=== PATIENT | female | born 1980 | race Two or more races ===

== ENCOUNTER 2019-11-30 13:50 | Outpatient (REF) | payer OTHER, SELFPAY | END 2019-11-30 13:51 | disposition home or self-care (01) | LOC: HO.LAB 13:50 | PROVIDERS: Visit Provider Internal Medicine | DX: Z20.828 Contact with and (suspected) exposure to other viral communicable diseases (principal) | CPT/HCPCS: 87635 ==

== ENCOUNTER 2020-01-17 16:14 | Outpatient (REF) | payer OTHER, SELFPAY | END 2020-01-17 16:15 | disposition home or self-care (01) | LOC: HO.LAB 16:14 | PROVIDERS: Visit Provider Internal Medicine | DX: Z20.828 Contact with and (suspected) exposure to other viral communicable diseases (principal) | CPT/HCPCS: C9803; U0003 ==

== ENCOUNTER 2020-06-03 20:30 | Emergency (ER) | payer OTHER, SELFPAY ==
--- NOTE | ~2020-06-03 | XR_ITS ---
EXAMINATION: Right fifth finger CLINICAL INFORMATION: Fifth digit crush injury COMPARISON: None TECHNIQUE: 3 views of the small finger including AP view of the hand FINDINGS: The bones and soft tissues are normal. No fracture. Alignment is anatomic. Joint spaces are maintained. XR/XR finger RT min 2V IMPRESSION: Normal x-ray series of the small finger. I do not see a fracture.
[2020-06-03 20:39] VITALS: BP 109/67; PULSE 82; RESP 18; TEMP 37; O2SAT 99; BMI 27.0
--- NOTE | 2020-06-03 21:13 | ED.EXTPRO ---
HPI - Extremity Problem General Chief complaint: Extremity Injury, Upper Stated complaint: Finger injury at work Source: patient Mode of arrival: ambulatory Limitations: no limitations History of Present Illness HPI Narrative: 39-year-old female with no significant past medical history presents for injury sustained work. Patient stated that she thought her 5th finger crushed and pinched while moving heavy objects. She does have a small abrasion at the PIP joint consistent with pinching, and has bruising to the entire finger down to the metacarpal. She is unable to straighten the finger due to pain. She has been using Tylenol and ice for pain management with poor. She does not describe any other symptoms. MD Complaint: extremity pain, extremity swelling, joint swelling and joint paint Onset (ago): day(s) (1) Pain Consistency: constant Location: right Severity scale (1-10): 7 Quality: aching and constant Radiation: none Relieving factors: immobilization and medication Exacerbating factors: range of motion and palpation Associated symptoms: denies other symptoms Related Data Allergies Allergy/AdvReac Type Severity Reaction Status Date / Time aspirin [ASPIRIN] Allergy Intermediate SWELLING Verified 06/03/20 20:39 ibuprofen [From MOTRIN] Allergy Unknown ASA ALLERGY Verified 06/03/20 20:39 Aspirin Allergy Unknown anaphylaxis Uncoded 03/12/11 00:00 Review of Systems Review of Systems: Constitutional: No Fever, No Chills ENT/Mouth: No Ear Pain, No Hoarseness, No sore throat Eyes: No Eye Pain, No Swelling, No Redness, No Foreign Body Cardiovascular: No Chest Pain, No SOB Respiratory: No Cough, No Dyspnea Gastrointestinal: No Nausea, No Vomiting, No Diarrhea, No abdominal Pain Genitourinary: No Dysuria, No Hematuria Musculoskeletal: positive right 5th finger pain and joint swelling, No Myalgias Skin: No Skin lacerations, No rash Neuro: No Weakness, No Numbness, No Paresthesias, No Loss of Consciousness, No Dizziness, No Headache Psych: No Anxiety/Panic, No Depression Heme/Lymph: no easy bruising, no Lymphadenopathy Endocrine: No Polyuria, No Polydipsia Yes all other systems are reviewed and are negative [facility] Past Medical History Attestation statement: The following information was validated with the patient. 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 Oriented X3. No acute distress. Eyes: Pupils equal, round and reactive to light. ENT: Pharynx normal. Neck: Normal inspection. Neck supple. CVS: Normal heart rate and rhythm. Pulses normal. Respiratory: No respiratory distress. Breath sounds normal. Abdomen: Soft and nontender. Skin: Skin warm and dry. Normal skin color. Normal skin turgor. Extremities: Swelling and bruising noted to the 5th finger on the right hand, pinch abrasion noted at the PIP palmar aspect, patient does have 5/5 strength and full range of motion although painful, brisk capillary refill and neurologically intact. Neuro: No motor deficit. No sensory deficit. Course Course Course Narrative: 39-year-old female presents with a work related injury to the right 5th finger. Plan of care is for x-ray. X-rays negative for fracture, however with the swelling, bruising, and pain is highly suspicious for a sprain. With the abrasion to the palmar aspect of the finger, we will update her Tdap vaccine. Patient was advised to follow up with work connection for further care. Patient was placed in a splint. Patient is allergic to aspirin and Motrin, will give Tylenol as needed for pain management. Patient verbalized understanding of and agrees plan of care discharge home. MDM - Extremity (Nontraumatic) MDM Narrative Medical decision making narrative: Fracture, sprain, abrasion, dislocation Medical Records Attestation: I reviewed the patient's medical records. Imaging Data Finger x-ray: Attestation: I personally reviewed and interpreted this imaging study as follows: Radiologist's impression: EXAMINATION: Right fifth finger CLINICAL INFORMATION: Fifth digit crush injury COMPARISON: None TECHNIQUE: 3 views of the small finger including AP view of the hand FINDINGS: The bones and soft tissues are normal. No fracture. Alignment is anatomic. Joint spaces are maintained. XR/XR finger RT min 2V IMPRESSION: Normal x-ray series of the small finger. I do not see a fracture. Discharge Plan Discharge Clinical Impression: Finger sprain Qualifiers: Encounter type: initial encounter Finger: little finger Sprain of finger site: metacarpophalangeal joint Laterality: left Qualified Code(s): S63.657A - Sprain of metacarpophalangeal joint of left little finger, initial encounter Patient Disposition: Home, Self-Care Instructions: Finger Sprain (ED), Crush Injury (ED) Additional Instructions: You were evaluated for a finger crush injury while at work. We updated her Tdap vaccine. Your x-rays are negative for fracture however are highly suspicious for a sprain. Please use the splint as needed. Use Tylenol as needed for pain management. Use ice and elevation to help reduce pain and swelling. Follow-up with work connection. Thank you for choosing this emergency department for evaluation. Please follow-up with primary care physician as needed. Return to the emergency department for any new, concerning, or worsening symptoms. Interventions: ED Discharge Assessment Last Done: 06/03/20 22:16 Discharge Date/Time: 06/03/20 22:17
[2020-06-03] MEDS: Diphth,Pertus(ACell),Tet Adult 0.5 ML SYRINGE IM (21:36)
== END 2020-06-03 22:17 | disposition home or self-care (01) ==
PROVIDERS: Emergency Provider Internal Medicine; PCP Internal Medicine
DX: S63.656A Sprain of metacarpophalangeal joint of right little finger, initial encounter (principal); S60.416A Abrasion of right little finger, initial encounter; W23.1XXA Caught, crushed, jammed, or pinched between stationary objects, initial encounter; Y93.89 Activity, other specified; Y92.219 Unspecified school as the place of occurrence of the external cause; Y99.0 Civilian activity done for income or pay
CPT/HCPCS: 29130; 73140; 90471; 90715; 99284

== ENCOUNTER 2021-12-28 14:40 | Outpatient (REF) | payer OTHER, SELFPAY ==
[2021-12-28 16:11] LABS: MANUAL DIFF FLAG NO
[2021-12-28 16:26] LABS: Appearance Urine Clear; Color Urine Yellow; Glucose Urine UA Negative (Negative); Leukocyte Esterase Urine Negative (Negative); Nitrite Urine Negative (Negative); Specific Gravity - Urine <= 1.005 (1.005-1.025); UMIC TRIGGER UA YES; Urine Blood Moderate (2+) (Negative); Urine Ketones Negative (Negative); Urine Protein Negative (Neg-Trace)
[2021-12-28 16:31] LABS: Basophils Absolute Auto 0.1 X10*3/uL (0.0-0.2); Basophils Percent Auto 0.9 % (0-2); Eosinophils Absolute Auto 0.1 X10*3/uL (0.0-0.4); Eosinophils Percent Auto 1.4 % (0-4); Hematocrit 41.1 % (37.0-47.0); Hemoglobin 13.4 g/dl (12.0-16.0); Imm Gran Abs Auto 0.03 X10*3/uL (0.00-0.03); Imm Gran Pct Auto 0.5 % (0.0-0.4); Lymphocytes Absolute Auto 1.6 X10*3/uL (1.2-4.9); Lymphocytes Percent Auto 23.6 % (20-40); Mean Corpuscular HGB Conc 32.6 g/dl (31.0-35.0); Mean Corpuscular Hemoglobin 29.3 pg (27.0-33.0); Mean Corpuscular Volume 89.7 fL (80.0-98.0); Mean Platelet Volume 11.9 fL (9.4-12.3); Monocytes Absolute Auto 0.4 X10*3/uL (0.1-1.2); Monocytes Percent Auto 5.5 % (2-11); Neutrophils Absolute Auto 4.5 x10*3/uL (2.0-8.3); Neutrophils Percent Auto 68.1 % (45-73); Platelet Count 258 X10*3/uL (160-400); Red Blood Count 4.58 X10*6/uL (4.20-5.50); Red Cell Distribution Width 13.5 % (11.0-16.0); White Blood Count 6.6 X10*3/uL (4.8-10.8)
[2021-12-28 16:38] LABS: Estimated Average Glucose 103 mg/dL; Hemoglobin A1c % 5.2 %
[2021-12-28 16:47] LABS: Bacteria Urine None Seen (None Seen); Hyaline Casts Urine 0-2 /LPF (0-2); RBC Urine 0-2 /HPF (0-2); Squamous Epithelial Cell Urine 0-2 /HPF (0-2); WBC Urine 0-5 /HPF (0-5)
[2021-12-28 16:49] LABS: Creatinine Urine 30.39 mg/dL; Total Protein Urine Random < 7 mg/dL (<12)
[2021-12-28 16:50] LABS: Alanine Aminotransferase 14 U/L (0-31); Albumin Level 4.5 g/dL (3.5-5.0); Alkaline Phosphatase 81 U/L (39-117); Anion Gap 14 (12-20); Aspartate Amino Transferase 16 U/L (5-31); Bilirubin Total 0.5 mg/dL (0.0-1.0); Blood Urea Nitrogen 10 mg/dL (9-16); C Reactive Protein 0.29 mg/dL (< or = 0.50); Calcium 9.5 mg/dL (8.4-10.2); Carbon Dioxide 26 mmol/L (22-29); Chloride 103 mmol/L (96-108); Estimated Glomerular Filt Rate > 60; Glucose Random 99 mg/dL (60-115); Potassium 4.4 mmol/L (3.3-5.1); Rheumatoid Factor 59.1 IU/mL (<15.0); Sodium 139 mmol/L (135-145); Total Protein 7.3 g/dL (6.5-8.0)
[2021-12-28 17:30] LABS: Erythrocyte Sedimentation Rate 9 MM/HR (0-20)
[2021-12-31 05:05] LABS: HBS Num1 3.31 mIU/mL (0-7.99); HBsAGNum1 0.19 S/CO (0.00-0.99); Hepatitis B Core Antibody Nonreactive (Nonreactive); Hepatitis B Surface Antigen Negative (Negative); ~HepC Num1 0.07 S/CO (0.00-0.79); ~Hepatitis B Surface Antibody NONREACTIVE (Nonreactive); ~Hepatitis C Antibody Nonreactive (Nonreactive)
[2021-12-31 06:02] LABS: TS Negative Control Passed; TS Panel A 0; TS Panel B 0; TS Positive Control Passed; TSpotTB Negative (Negative)
[2021-12-31 13:21] LABS: Anti Nuclear Antibody Screen NEGATIVE (NEGATIVE)
[2021-12-31 14:25] LABS: Complement C3 141 mg/dL (83-193)
[2021-12-31 23:37] LABS: Anti DNA DS Antibody 4 IU/mL; Antibody to SS-A Antigen <1.0 NEG AI (<1.0 NEG); Antibody to SS-B Antigen <1.0 NEG AI (<1.0 NEG); SM/Ribonucleoprotein Ab <1.0 NEG AI (<1.0 NEG); Smith Protein <1.0 NEG AI (<1.0 NEG)
[2022-01-01 14:07] LABS: Cyclic Citrullinated Peptide <16 UNITS
[2022-01-02 05:57] LABS: Hepatitis A Antibody IgM 0.22 Index (0-0.79); ~Hepatitis A Antibody IgM Nonreactive (Nonreactive)
[2022-01-02 10:12] LABS: Prot Elec - Albumin 4.2 g/dL (3.8-4.8); Prot Elec - Alpha1 0.2 g/dL (0.2-0.3); Prot Elec - Alpha2 0.6 g/dL (0.5-0.9); Prot Elec - Beta 1 0.4 g/dL (0.4-0.6); Prot Elec - Beta 2 0.3 g/dL (0.2-0.5); Prot Elec - Total Protein 6.8 g/dL (6.1-8.1)
[2022-01-02 11:57] LABS: IgA 262 mg/dL (47-310); IgG 1074 mg/dL (600-1640); IgM 229 mg/dL (50-300)
== END 2021-12-28 14:41 | disposition home or self-care (01) ==
LOC: HO.LAB 14:40
PROVIDERS: PCP Internal Medicine; Referring Provider Internal Medicine; Visit Provider Student in an Organized Health Care Education/Training Program
DX: Z11.59 Encounter for screening for other viral diseases (principal); Z11.7 Encounter for testing for latent tuberculosis infection; Z13.1 Encounter for screening for diabetes mellitus; M06.9 Rheumatoid arthritis, unspecified; M25.542 Pain in joints of left hand
CPT/HCPCS: 36415; 80053; 81001; 82550; 82784; 83036; 84156; 84165; 85025; 85652; 86038; 86039; 86140; 86160; 86200; 86225; 86235; 86334; 86431; 86481; 86704; 86706; 86709; 86803; 87340; 99202

== ENCOUNTER 2022-01-09 14:11 | Outpatient (REF) | payer OTHER, SELFPAY ==
--- NOTE | ~2022-01-09 | XR_ITS ---
EXAMINATION: XR ELBOW, BILATERAL CLINICAL INFORMATION: Elbow pain. Rheumatoid arthritis. COMPARISON: None TECHNIQUE: 3 views each elbow. FINDINGS: LEFT ELBOW: There is no visible fracture, dislocation or subluxation. No bony erosive changes. The soft tissues are normal. No abnormal joint effusion. RIGHT ELBOW: There is no visible acute fracture, dislocation or subluxation seen. No abnormal joint effusion. No loose bodies. XR/XR elbow LT min 3V IMPRESSION: Unremarkable bilateral elbow exam.
--- NOTE | ~2022-01-09 | XR_ITS ---
EXAMINATION: LEFT FOOT AND ANKLE X-RAY CLINICAL INFORMATION: Rheumatoid arthritis COMPARISON: None TECHNIQUE: 3 views of the left foot and 3 views of the left ankle FINDINGS: Left foot: Bone alignment is normal. No fracture or dislocation. Normal joints spaces. Normal soft tissues. Left ankle: Bone alignment is normal. No fracture or dislocation. Normal ankle mortise. Normal soft tissues. XR/XR ankle LT min 3V IMPRESSION: Unremarkable exam
--- NOTE | ~2022-01-09 | XR_ITS ---
EXAMINATION: RIGHT ANKLE AND RIGHT FOOT X-RAY CLINICAL INFORMATION: Rheumatoid arthritis COMPARISON: None TECHNIQUE: 3 views of the right foot and 3 views of the right ankle FINDINGS: Right foot: Bone alignment is normal. No fracture or dislocation bases. Normal soft tissues. Right ankle: Bone alignment is normal. No fracture or dislocation. Normal ankle mortise. Normal soft tissues. XR/XR ankle RT min 3V IMPRESSION: Unremarkable exam.
--- NOTE | ~2022-01-09 | XR_ITS ---
EXAMINATION: RIGHT ANKLE AND RIGHT FOOT X-RAY CLINICAL INFORMATION: Rheumatoid arthritis COMPARISON: None TECHNIQUE: 3 views of the right foot and 3 views of the right ankle FINDINGS: Right foot: Bone alignment is normal. No fracture or dislocation bases. Normal soft tissues. Right ankle: Bone alignment is normal. No fracture or dislocation. Normal ankle mortise. Normal soft tissues. XR/XR foot RT min 3V IMPRESSION: Unremarkable exam.
--- NOTE | ~2022-01-09 | XR_ITS ---
EXAMINATION: BILATERAL HAND AND WRIST X-RAY CLINICAL INFORMATION: Rheumatoid arthritis COMPARISON: None TECHNIQUE: 4 views of each hand and wrist FINDINGS: Right: Bone alignment is normal. No fracture or dislocation. There is a small subchondral cyst in the proximal phalanx of the thumb at the ends the MCP joint. Joint spaces are otherwise normal. Soft tissues are normal. Left: Bone alignment is normal. No fracture or dislocation. Joint spaces are normal. Soft tissues are normal. XR/XR hand wrist RT IMPRESSION: Small cyst at the right first MCP joint. Otherwise unremarkable exam.
--- NOTE | ~2022-01-09 | XR_ITS ---
EXAMINATION: LEFT FOOT AND ANKLE X-RAY CLINICAL INFORMATION: Rheumatoid arthritis COMPARISON: None TECHNIQUE: 3 views of the left foot and 3 views of the left ankle FINDINGS: Left foot: Bone alignment is normal. No fracture or dislocation. Normal joints spaces. Normal soft tissues. Left ankle: Bone alignment is normal. No fracture or dislocation. Normal ankle mortise. Normal soft tissues. XR/XR foot LT min 3V IMPRESSION: Unremarkable exam
--- NOTE | ~2022-01-09 | XR_ITS ---
EXAMINATION: BILATERAL HAND AND WRIST X-RAY CLINICAL INFORMATION: Rheumatoid arthritis COMPARISON: None TECHNIQUE: 4 views of each hand and wrist FINDINGS: Right: Bone alignment is normal. No fracture or dislocation. There is a small subchondral cyst in the proximal phalanx of the thumb at the ends the MCP joint. Joint spaces are otherwise normal. Soft tissues are normal. Left: Bone alignment is normal. No fracture or dislocation. Joint spaces are normal. Soft tissues are normal. XR/XR hand wrist LT IMPRESSION: Small cyst at the right first MCP joint. Otherwise unremarkable exam.
--- NOTE | ~2022-01-09 | XR_ITS ---
EXAMINATION: XR ELBOW, BILATERAL CLINICAL INFORMATION: Elbow pain. Rheumatoid arthritis. COMPARISON: None TECHNIQUE: 3 views each elbow. FINDINGS: LEFT ELBOW: There is no visible fracture, dislocation or subluxation. No bony erosive changes. The soft tissues are normal. No abnormal joint effusion. RIGHT ELBOW: There is no visible acute fracture, dislocation or subluxation seen. No abnormal joint effusion. No loose bodies. XR/XR elbow RT min 3V IMPRESSION: Unremarkable bilateral elbow exam.
== END 2022-01-09 14:12 | disposition home or self-care (01) ==
LOC: HO.LAB 14:11
PROVIDERS: PCP Internal Medicine; Visit Provider Student in an Organized Health Care Education/Training Program
DX: M06.9 Rheumatoid arthritis, unspecified (principal)
CPT/HCPCS: 73080; 73110; 73130; 73610; 73630

== ENCOUNTER → 2022-02-05 15:08 | Outpatient (BNVA) | payer OTHER, SELFPAY | PROVIDERS: PCP Internal Medicine; Visit Provider Student in an Organized Health Care Education/Training Program | DX: M05.79 Rheumatoid arthritis with rheumatoid factor of multiple sites without organ or systems involvement (principal); Z79.631 Long term (current) use of antimetabolite agent | CPT/HCPCS: 99212 ==

== ENCOUNTER 2022-02-22 20:04 | Emergency (ER) | payer OTHER, SELFPAY ==
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
[2022-02-22 20:56] VITALS: BP 115/70; PULSE 67; RESP 16; TEMP 36.1; O2SAT 99; BMI 25.1
--- NOTE | 2022-02-23 00:38 | ED_ITS ---
HPI - Extremity Injury (Lower) General Chief Complaint: Extremity Injury, Lower Stated Complaint: knee pain, work injury Time Seen by Provider: 02/23/22 00:33 Source: patient Mode of arrival: ambulatory Limitations: no limitations History of Present Illness HPI Narrative: Patient comes to the emergency room complaining of right-sided knee pain. Patient states that she was at work, landed on her knee. Patient denies any other injury. No abrasion to the skin Related Data Home Medications Medication Instructions Recorded Confirmed albuterol sulfate 90 mcg/actuation 2 puff inhalation QID PRN wheezing 12/27/21 02/05/22 aerosol inhaler (ProAir HFA) budesonide 90 mcg/actuation breath 0 inh inhalation DIRECTED 12/27/21 02/05/22 activated powder inhaler (Pulmicort Flexhaler) cetirizine 10 mg tablet 10 mg PO DAILY PRN allergies 12/27/21 02/05/22 ferrous sulfate 324 mg (65 mg 324 mg PO DAILY 12/27/21 02/05/22 iron) tablet,delayed release fluticasone propionate 50 1 spray intranasal BID 12/27/21 02/05/22 mcg/actuation nasal spray,suspension norethindrone (contraceptive) 0.35 0.35 mg PO DAILY 12/27/21 02/05/22 mg tablet pantoprazole 40 mg tablet,delayed 40 mg PO DAILY 12/27/21 02/05/22 release sumatriptan succinate 50 mg tablet See Rx Instructions PO .COMPLEX 12/27/21 02/05/22 cholecalciferol (vitamin D3) 50 50 mcg PO DAILY PRN 12/28/21 02/05/22 mcg (2,000 unit) capsule (D3-2000) ferrous sulfate 325 mg (65 mg 325 mg PO DAILY 12/28/21 02/05/22 iron) tablet Previous Rx's Medication Instructions Recorded folic acid 1 mg tablet 1 mg PO DAILY #90 tabs 02/05/22 methotrexate sodium 2.5 mg tablet 15 mg PO QWEEK #24 tabs 02/05/22 acetaminophen 500 mg capsule 500 mg PO Q6H PRN fever or pain 02/23/22 #14 caps Allergies Allergy/AdvReac Type Severity Reaction Status Date / Time aspirin [ASPIRIN] Allergy Intermediate SWELLING Verified 02/22/22 21:01 ibuprofen [From MOTRIN] Allergy Unknown ASA ALLERGY Verified 02/22/22 21:01 Aspirin Allergy Unknown anaphylaxis Uncoded 02/22/22 21:01 Review of Systems Review of Systems: Constitutional : No Weight loss, No Fever, No Chills, No Night Sweats, No Fatigue, No Malaise ENT/Mouth : No Hearing loss, No Ear Pain, No Nasal Congestion, No Sinus Pain, No Hoarseness, No sore throat, No Rhinorrhea, No Swallowing Difficulty Eyes: No Eye Pain, No Swelling, No Redness, No Foreign Body, No Discharge, No Vision Changes Cardiovascular : No Chest Pain, No SOB, No Dyspnea on Exertion, No Orthopnea, No Edema, No Palpitations Respiratory : No Cough, No Sputum, No Wheezing, No Smoke Exposure, No Dyspnea Gastrointestinal : No Nausea, No Vomiting, No Diarrhea, No Constipation, No abdominal Pain, No Hematochezia, No Melena Genitourinary : no irregular bleeding, No Dysuria, No Urinary Frequency, No Hematuria, No Urinary Incontinence, No Urgency, No Flank Pain, No Urinary Flow Changes, No Hesitancy Musculoskeletal : Complaining of right-sided knee pain, No Myalgias, No Joint Swelling Skin : No Skin Lesions, No rash Neuro : No Weakness, No Numbness, No Paresthesias, No Loss of Consciousness, No Dizziness, No Headache Psych : No Anxiety/Panic, No Depression, No SI/HI/AH/VH, No Social Issues, Heme/Lymph: No Bruising, No Bleeding,No Lymphadenopathy Endocrine : No Polyuria, No Polydipsia, No Temperature Intolerance PMFSH Past Medical History Medical History Asthma Iron deficiency anemia Migraines Stomach ulcer Surgical History H/O tubal ligation Family History Family History Father Arthritis Mother Osteoporosis Social History Social History Household Members: Spouse and Children Alcohol intake: current Alcohol intake frequency: does not drink Patient Tobacco Use Status: Never used Tobacco Current occupational status: employed 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 Oriented X3. No acute distress. Eyes: Pupils equal, round and reactive to light. ENT: Pharynx normal. Neck: Normal inspection. Neck supple. No lymph nodes noted. No crepitus CVS: Normal heart rate and rhythm. Pulses normal. Normal S1 and S2 Respiratory: No respiratory distress. Breath sounds normal. No Wheezing. No rales Abdomen: Soft and nontender. No rigidity. No distention. Skin: Skin warm and dry. Normal skin color. Normal skin turgor. Extremities: Lower extremities within normal limits, right knee does not have any ecchymosis, no swelling, patient walked with normal gait from the waiting room to her room in the Neuro: Oriented X 3. No motor deficit. No sensory deficit. Moving all extremities. No slurred speech. CN 2 through 12 grossly intact Psych: calm, cooperative, normal affect Course Course Course Narrative: Normal physical exam, no swelling, no ecchymosis, normal gait, x-ray negative Medical Decision Making Radiology Impression Discussion of test interpretation with radiology: I have reviewed the ra diologist's reading. Radiologist Impression: FINDINGS: Bones and soft tissues are normal. No fracture or joint effusion. Alignment is anatomic. Joint spaces are well maintained. No abnormal soft tissue calcification.? XR/XR knee RT 2V IMPRESSION: Normal right knee. Discharge Plan Discharge Clinical Impression: Contusion of knee Patient Disposition: Home, Self-Care Instructions: Knee Pain (ED) Additional Instructions: Please follow-up with your primary care physician tomorrow. If you have any worsening or new symptoms, please return to the emergency room or call 911 Prescriptions: New acetaminophen 500 mg capsule 500 mg PO Q6H PRN (Reason: fever or pain) Qty: 14 0RF No Action pantoprazole 40 mg tablet,delayed release (DR/EC) 40 mg PO DAILY Pulmicort Flexhaler 90 mcg/actuation aerosol powdr breath activated 0 inh inhalation DIRECTED fluticasone propionate 50 mcg/actuation spray,suspension 1 spray intranasal BID cetirizine 10 mg tablet 10 mg PO DAILY PRN (Reason: allergies) albuterol sulfate [ProAir HFA] 90 mcg/actuation HFA aerosol inhaler 2 puff inhalation QID PRN (Reason: wheezing) norethindrone (contraceptive) 0.35 mg tablet 0.35 mg PO DAILY ferrous sulfate 324 mg (65 mg iron) tablet,delayed release (DR/EC) 324 mg PO DAILY sumatriptan succinate 50 mg tablet See Rx Instructions PO .COMPLEX Rx Instructions: take 1 tab at onset of headache; if no relief may repeat 1 tab after at least 2 hrs; max = 4 tabs/24 hr PO cholecalciferol (vitamin D3) [D3-2000] 50 mcg (2,000 unit) capsule 50 mcg PO DAILY PRN ferrous sulfate 325 mg (65 mg iron) tablet 325 mg PO DAILY methotrexate sodium 2.5 mg tablet 15 mg PO QWEEK Qty: 24 1RF folic acid 1 mg tablet 1 mg PO DAILY Qty: 90 1RF
[2022-02-23] MEDS: Acetaminophen 325 MG TABLET 975 MG PO (01:04)
== END 2022-02-23 01:08 | disposition home or self-care (01) ==
PROVIDERS: Emergency Provider Emergency Medicine; PCP Internal Medicine
DX: S80.01XA Contusion of right knee, initial encounter (principal); W19.XXXA Unspecified fall, initial encounter; Y93.89 Activity, other specified; Y92.410 Unspecified street and highway as the place of occurrence of the external cause; Y99.0 Civilian activity done for income or pay
CPT/HCPCS: 73560; 99283

== ENCOUNTER 2022-03-05 14:05 | Outpatient (REF) | payer OTHER, SELFPAY ==
[2022-03-05 14:23] LABS: MANUAL DIFF FLAG NO
[2022-03-05 15:14] LABS: Basophils Absolute Auto 0.1 X10*3/uL (0.0-0.2); Basophils Percent Auto 1.2 % (0-2); Eosinophils Absolute Auto 0.4 X10*3/uL (0.0-0.4); Eosinophils Percent Auto 6.2 % (0-4); Hematocrit 38.2 % (37.0-47.0); Hemoglobin 12.8 g/dl (12.0-16.0); Imm Gran Abs Auto 0.04 X10*3/uL (0.00-0.03); Imm Gran Pct Auto 0.6 % (0.0-0.4); Lymphocytes Absolute Auto 1.8 X10*3/uL (1.2-4.9); Mean Corpuscular HGB Conc 33.5 g/dl (31.0-35.0); Mean Corpuscular Hemoglobin 31.4 pg (27.0-33.0); Mean Corpuscular Volume 93.6 fL (80.0-98.0); Mean Platelet Volume 12.7 fL (9.4-12.3); Monocytes Absolute Auto 0.6 X10*3/uL (0.1-1.2); Monocytes Percent Auto 8.3 % (2-11); Neutrophils Absolute Auto 3.8 x10*3/uL (2.0-8.3); Neutrophils Percent Auto 56.7 % (45-73); Platelet Count 269 X10*3/uL (160-400); Red Blood Count 4.08 X10*6/uL (4.20-5.50); Red Cell Distribution Width 13.4 % (11.0-16.0); White Blood Count 6.7 X10*3/uL (4.8-10.8)
[2022-03-05 16:04] LABS: Erythrocyte Sedimentation Rate 9 MM/HR (0-20)
[2022-03-05 16:21] LABS: Alanine Aminotransferase 10 U/L (0-31); Albumin Level 4.2 g/dL (3.5-5.0); Alkaline Phosphatase 84 U/L (39-117); Anion Gap 12 (12-20); Aspartate Amino Transferase 17 U/L (5-31); Bilirubin Total 0.6 mg/dL (0.0-1.0); Blood Urea Nitrogen 13 mg/dL (9-16); C Reactive Protein 0.35 mg/dL (< or = 0.50); Calcium 9.6 mg/dL (8.4-10.2); Carbon Dioxide 27 mmol/L (22-29); Chloride 104 mmol/L (96-108); Estimated Glomerular Filt Rate > 60; Glucose Random 78 mg/dL (60-115); Potassium 4.2 mmol/L (3.3-5.1); Sodium 139 mmol/L (135-145)
== END 2022-03-05 14:06 | disposition home or self-care (01) ==
LOC: HO.LAB 14:05
PROVIDERS: Visit Provider Student in an Organized Health Care Education/Training Program
DX: Z79.631 Long term (current) use of antimetabolite agent (principal)
CPT/HCPCS: 36415; 80053; 85025; 85652; 86140

== ENCOUNTER → 2022-03-27 14:53 | Outpatient (BNVA) | payer OTHER, SELFPAY | PROVIDERS: PCP Internal Medicine; Visit Provider Student in an Organized Health Care Education/Training Program | DX: M05.79 Rheumatoid arthritis with rheumatoid factor of multiple sites without organ or systems involvement (principal); Z79.631 Long term (current) use of antimetabolite agent | CPT/HCPCS: 99212 ==

== ENCOUNTER 2022-05-29 14:00 | Outpatient (REF) | payer OTHER, SELFPAY ==
[2022-05-29 14:11] LABS: MANUAL DIFF FLAG NO
[2022-05-29 16:02] LABS: Basophils Absolute Auto 0.1 X10*3/uL (0.0-0.2); Eosinophils Absolute Auto 0.4 X10*3/uL (0.0-0.4); Eosinophils Percent Auto 5.8 % (0-4); Hematocrit 36.4 % (37.0-47.0); Hemoglobin 12.2 g/dl (12.0-16.0); Imm Gran Abs Auto 0.02 X10*3/uL (0.00-0.03); Imm Gran Pct Auto 0.3 % (0.0-0.4); Lymphocytes Absolute Auto 1.7 X10*3/uL (1.2-4.9); Lymphocytes Percent Auto 27.3 % (20-40); Mean Corpuscular HGB Conc 33.5 g/dl (31.0-35.0); Mean Corpuscular Hemoglobin 31.5 pg (27.0-33.0); Mean Corpuscular Volume 94.1 fL (80.0-98.0); Mean Platelet Volume 12.4 fL (9.4-12.3); Monocytes Absolute Auto 0.5 X10*3/uL (0.1-1.2); Monocytes Percent Auto 7.5 % (2-11); Neutrophils Absolute Auto 3.5 x10*3/uL (2.0-8.3); Neutrophils Percent Auto 58.1 % (45-73); Platelet Count 249 X10*3/uL (160-400); Red Blood Count 3.87 X10*6/uL (4.20-5.50)
[2022-05-29 16:31] LABS: Alanine Aminotransferase 10 U/L (0-31); Albumin Level 4.3 g/dL (3.5-5.0); Alkaline Phosphatase 83 U/L (39-117); Anion Gap 12 (12-20); Aspartate Amino Transferase 18 U/L (5-31); Bilirubin Total 0.8 mg/dL (0.0-1.0); Blood Urea Nitrogen 16 mg/dL (9-16); C Reactive Protein 0.33 mg/dL (< or = 0.50); Calcium 9.2 mg/dL (8.4-10.2); Carbon Dioxide 26 mmol/L (22-29); Chloride 105 mmol/L (96-108); Estimated Glomerular Filt Rate > 60; Glucose Random 80 mg/dL (60-115); Potassium 4.6 mmol/L (3.3-5.1); Sodium 138 mmol/L (135-145); Total Protein 6.8 g/dL (6.5-8.0)
[2022-05-29 16:57] LABS: Erythrocyte Sedimentation Rate 8 MM/HR (0-20)
== END 2022-05-29 14:01 | disposition home or self-care (01) ==
LOC: HO.LAB 14:00
PROVIDERS: PCP Internal Medicine; Visit Provider Student in an Organized Health Care Education/Training Program
DX: Z79.631 Long term (current) use of antimetabolite agent (principal)
CPT/HCPCS: 36415; 80053; 85025; 85652; 86140

== ENCOUNTER 2022-07-06 21:52 | Emergency (ER) | payer OTHER, SELFPAY ==
--- NOTE | ~2022-07-06 | XR_ITS ---
EXAMINATION: XR CHEST CLINICAL INFORMATION: Chest pain COMPARISON: 06/03/2018 TECHNIQUE: Frontal view of the chest was obtained. FINDINGS: The lungs are clear with no focal consolidation. No evidence of pneumothorax, pulmonary edema, or pleural effusions. The cardiomediastinal silhouette is unremarkable. No acute osseous findings. XR/XR chest 1V IMPRESSION: No acute cardiopulmonary findings.
--- NOTE | 2022-07-06 21:55 | ECG_ITS ---
Test Reason : chest pain Blood Pressure : / mmHG Vent. Rate : 065 BPM Atrial Rate : 065 BPM P-R Int : 162 ms QRS Dur : 084 ms QT Int : 384 ms P-R-T Axes : 069 014 042 degrees QTc Int : 399 ms Normal sinus rhythm Possible Left atrial enlargement Borderline ECG When compared with ECG of 03-NOV-2016 18:42, No significant change was found Referred By: Generic ED Physician Electronically Signed By:J LUIS BLAIR
[2022-07-06 22:09] VITALS: BP 112/80; PULSE 67; RESP 18; TEMP 36.3; O2SAT 96; BMI 24.6
[2022-07-06 22:14] LABS: Basophils Absolute Auto 0.1 X10*3/uL (0.0-0.2); Basophils Percent Auto 1.4 % (0-2); Eosinophils Absolute Auto 0.4 X10*3/uL (0.0-0.4); Eosinophils Percent Auto 5.5 % (0-4); Hematocrit 39.3 % (37.0-47.0); Hemoglobin 13.2 g/dl (12.0-16.0); Imm Gran Abs Auto 0.01 X10*3/uL (0.00-0.03); Imm Gran Pct Auto 0.2 % (0.0-0.4); Lymphocytes Absolute Auto 2.3 X10*3/uL (1.2-4.9); Lymphocytes Percent Auto 35.7 % (20-40); MANUAL DIFF FLAG NO; Mean Corpuscular HGB Conc 33.6 g/dl (31.0-35.0); Mean Corpuscular Hemoglobin 30.6 pg (27.0-33.0); Mean Corpuscular Volume 91.2 fL (80.0-98.0); Mean Platelet Volume 11.3 fL (9.4-12.3); Monocytes Absolute Auto 0.3 X10*3/uL (0.1-1.2); Monocytes Percent Auto 5.3 % (2-11); Neutrophils Absolute Auto 3.3 x10*3/uL (2.0-8.3); Neutrophils Percent Auto 51.9 % (45-73); Platelet Count 305 X10*3/uL (160-400); Red Blood Count 4.31 X10*6/uL (4.20-5.50); Red Cell Distribution Width 13.3 % (11.0-16.0); White Blood Count 6.4 X10*3/uL (4.8-10.8)
[2022-07-06 22:30] LABS: Anion Gap 12 (12-20); Blood Urea Nitrogen 15 mg/dL (9-16); Calcium 9.8 mg/dL (8.4-10.2); Carbon Dioxide 25 mmol/L (22-29); Chloride 105 mmol/L (96-108); Creatinine Clr Calc Pharmacy 73.9; Estimated Glomerular Filt Rate > 60; Glucose Random 83 mg/dL (60-115); Sodium 138 mmol/L (135-145)
[2022-07-06 22:38] LABS: Troponin-I High Sensitivity < 2.7 ng/L (<3.5-17.0)
[2022-07-06 23:33] VITALS: BP 100/63; PULSE 59; RESP 16; TEMP 36.6; O2SAT 98
[2022-07-06 23:34] VITALS: BP 105/75; BP 110/77; PULSE 77; PULSE 78
--- NOTE | 2022-07-06 23:44 | ED.GENADULT ---
HPI - General Adult General Chief complaint: General Medical Stated complaint: Chest Pain Time Seen by Provider: 07/06/22 23:28 History of Present Illness HPI narrative: Patient is a 41-year-old female presents today with having chest tightness. Patient feels a tightness since yesterday. It has been ongoing. History of rheumatoid arthritis. Currently on methotrexate. No fever no chills. No diaphoresis. No shortness of breath. No changes with deep breath. No leg swelling. No history of blood clots. No history diabetes, hypertension, high cholesterol, smoking, mi. Patient from home. No trigger. Not made worse with movement. No fever no chills. No coughing or congestion or respiratory symptoms. Related Data Home Medications Medication Instructions Recorded Confirmed albuterol sulfate 90 mcg/actuation 2 puff inhalation QID PRN wheezing 12/27/21 02/05/22 aerosol inhaler (ProAir HFA) budesonide 90 mcg/actuation breath 0 inh inhalation DIRECTED 12/27/21 02/05/22 activated powder inhaler (Pulmicort Flexhaler) cetirizine 10 mg tablet 10 mg PO DAILY PRN allergies 12/27/21 02/05/22 fluticasone propionate 50 1 spray intranasal BID 12/27/21 02/05/22 mcg/actuation nasal spray,suspension pantoprazole 40 mg tablet,delayed 40 mg PO DAILY 12/27/21 02/05/22 release sumatriptan succinate 50 mg tablet See Rx Instructions PO .COMPLEX 12/27/21 02/05/22 cholecalciferol (vitamin D3) 50 50 mcg PO DAILY 03/27/22 mcg (2,000 unit) capsule (D3) Previous Rx's Medication Instructions Recorded folic acid 1 mg tablet 1 mg PO DAILY #90 tabs 02/05/22 acetaminophen 500 mg capsule 500 mg PO Q6H PRN fever or pain 02/23/22 #14 caps methotrexate sodium 2.5 mg tablet 20 mg PO QWEEK #64 tabs 06/25/22 Allergies Allergy/AdvReac Type Severity Reaction Status Date / Time ibuprofen [From MOTRIN] Allergy Unknown ASA ALLERGY Verified 07/06/22 22:13 Aspirin Allergy Unknown anaphylaxis Uncoded 03/27/22 14:59 Review of Systems Review of Systems: Positive chest tightness Yes all other systems are reviewed and are negative PMFSH Past Medical History Attestation statement: The following information was validated with the patient. 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 Oriented X3. No acute distress. Eyes: Pupils equal, round and reactive to light. ENT: Pharynx normal. Neck: Normal inspection. Neck supple. No lymph nodes noted. No crepitus CVS: Normal heart rate and rhythm. Pulses normal. Normal S1 and S2 Respiratory: No respiratory distress. Breath sounds normal. No Wheezing. No rales Abdomen: Soft and nontender. No rigidity. No distention. good BS x4 Skin: Skin warm and dry. Normal skin color. Normal skin turgor. Extremities: No lower extremity edema. Neurovascular intact to all extremities. No Lacerations. No Rash Neuro: Oriented X 3. No motor deficit. No sensory deficit. Moving all extermities. No slurred speech Medications Administered Discontinued Medications Generic Name Dose Route Start Last Admin Trade Name Freq PRN Reason Stop Dose Admin Al Hydroxide/Mg Hydroxide 30 ml 07/06/22 23:43 07/06/22 23:54 Magnesium Hydrox/Alum Hydrox 30 Ml Oral.Susp PO 07/06/22 23:44 30 ml ONCE ONE Administration Medical Decision Making Medical Decision Making [facility] Narrative: Patient's chest pain was atypical for ACS. Patient had tightness in the chest. That started yesterday. Been constant. Denies any shortness of breath. No diaphoresis. Patient has 2 sets of cardiac enzymes are negative. Has a history of rheumatoid arthritis. D-dimer was negative. No leg swelling. No history of shortness of breath. Symptom not made worse with deep breath. History and symptoms not consistent with pulmonary emboli. Chest x-ray was done. There was no evidence for pneumonia or pneumothorax. Patient's heart score is less than 3 given patient's chest pain is atypical. No significant cardiac risk factors. Patient's cardiac enzymes are negative. Will have patient follow-up on an outpatient basis. In stable condition. Differential Diagnosis Differential Diagnoses: The differential diagnosis associated with the presentation includes ACS, PE, pneumonia, pneumothorax Lab Data [facility] Lab Attestation statement: I reviewed the patient's lab results. 07/06/22 22:06 07/06/22 22:06 Labs: Lab Results 07/06/22 07/06/22 07/06/22 Range/Units 22:06 22:06 22:06 WBC 6.4 (4.8-10.8) X10*3/uL RBC 4.31 (4.20-5.50) X10*6/uL Hgb 13.2 (12.0-16.0) g/dl Hct 39.3 (37.0-47.0) % MCV 91.2 (80.0-98.0) fL MCH 30.6 (27.0-33.0) pg MCHC 33.6 (31.0-35.0) g/dl RDW 13.3 (11.0-16.0) % Plt Count 305 (160-400) X10*3/uL MPV 11.3 (9.4-12.3) fL Immature Gran % (Auto) 0.2 (0.0-0.4) % Neut % (Auto) 51.9 (45-73) % Lymph % (Auto) 35.7 (20-40) % [place] % (Auto) 5.3 (2-11) % Eos % (Auto) 5.5 H (0-4) % Baso % (Auto) 1.4 (0-2) % Lymph # (Auto) 2.3 (1.2-4.9) X10*3/uL [place] # (Auto) 0.3 (0.1-1.2) X10*3/uL Eos # (Auto) 0.4 (0.0-0.4) X10*3/uL Baso # (Auto) 0.1 (0.0-0.2) X10*3/uL Abs Immat Gran (auto) 0.01 (0.00-0.03) X10*3/uL Absolute Neuts (auto) 3.3 (2.0-8.3) x10*3/uL Absolute Nucleated RBC 0.000 (0.0-0.012) X10*3/uL Nucleated RBC % (auto) 0.0 (0.0-0.2) /100WBC D-Dimer High Sensitivty NG/ML Sodium 138 (135-145) mmol/L Potassium 4.0 (3.3-5.1) mmol/L Chloride 105 (96-108) mmol/L Carbon Dioxide 25 (22-29) mmol/L Anion Gap 12 (12-20) BUN 15 (9-16) mg/dL Creatinine 0.81 (0.5-1.4) mg/dL Estim Creat Clear Calc 73.9 Estimated GFR > 60 Random Glucose 83 (60-115) mg/dL Calcium 9.8 D (8.4-10.2) mg/dL Troponin I High Sens < 2.7 (<3.5-17.0) ng/L Beta HCG, Quant mIU/mL 07/07/22 07/07/22 07/07/22 Range/Units 00:09 00:09 00:09 WBC (4.8-10.8) X10*3/uL RBC (4.20-5.50) X10*6/uL Hgb (12.0-16.0) g/dl Hct (37.0-47.0) % MCV (80.0-98.0) fL MCH (27.0-33.0) pg MCHC (31.0-35.0) g/dl RDW (11.0-16.0) % Plt Count (160-400) X10*3/uL MPV (9.4-12.3) fL Immature Gran % (Auto) (0.0-0.4) % Neut % (Auto) (45-73) % Lymph % (Auto) (20-40) % [place] % (Auto) (2-11) % Eos % (Auto) (0-4) % Baso % (Auto) (0-2) % Lymph # (Auto) (1.2-4.9) X10*3/uL [place] # (Auto) (0.1-1.2) X10*3/uL Eos # (Auto) (0.0-0.4) X10*3/uL Baso # (Auto) (0.0-0.2) X10*3/uL Abs Immat Gran (auto) (0.00-0.03) X10*3/uL Absolute Neuts (auto) (2.0-8.3) x10*3/uL Absolute Nucleated RBC (0.0-0.012) X10*3/uL Nucleated RBC % (auto) (0.0-0.2) /100WBC D-Dimer High Sensitivty < 150 NG/ML Sodium (135-145) mmol/L Potassium (3.3-5.1) mmol/L Chloride (96-108) mmol/L Carbon Dioxide (22-29) mmol/L Anion Gap (12-20) BUN (9-16) mg/dL Creatinine (0.5-1.4) mg/dL Estim Creat Clear Calc Estimated GFR Random Glucose (60-115) mg/dL Calcium (8.4-10.2) mg/dL Troponin I High Sens < 2.7 (<3.5-17.0) ng/L Beta HCG, Quant < 2 mIU/mL Independent Interpretation I performed an independent interpretation of an: EKG Interpretation: Sinus heart rate is 60 OH QRS QT within normal limits there is no acute ST segment elevation noted. External Record Review External record reviewed: Inpatient record Discharge Plan Discharge Clinical Impression: Chest pain Patient Disposition: Home, Self-Care Instructions: Chest Pain (ED) Prescriptions: No Action methotrexate sodium 2.5 mg tablet 20 mg PO QWEEK Qty: 64 0RF Rx Instructions: Take 8 tabs once a week. Split the dose to 4 tabs twice 12-24 hours apart acetaminophen 500 mg capsule 500 mg PO Q6H PRN (Reason: fever or pain) Qty: 14 0RF pantoprazole 40 mg tablet,delayed release (DR/EC) 40 mg PO DAILY Pulmicort Flexhaler 90 mcg/actuation aerosol powdr breath activated 0 inh inhalation DIRECTED fluticasone propionate 50 mcg/actuation spray,suspension 1 spray intranasal BID cetirizine 10 mg tablet 10 mg PO DAILY PRN (Reason: allergies) albuterol sulfate [ProAir HFA] 90 mcg/actuation HFA aerosol inhaler 2 puff inhalation QID PRN (Reason: wheezing) sumatriptan succinate 50 mg tablet See Rx Instructions PO .COMPLEX Rx Instructions: take 1 tab at onset of headache; if no relief may repeat 1 tab after at least 2 hrs; max = 4 tabs/24 hr PO cholecalciferol (vitamin D3) [D3-2000] 50 mcg (2,000 unit) capsule 50 mcg PO DAILY folic acid 1 mg tablet 1 mg PO DAILY Qty: 90 1RF Referrals: Goran Laurent MD [Physician] - 07/09/22
[2022-07-06] MEDS: Magnesium Hydrox/Alum Hydrox 30 ML ORAL.SUSP PO (23:54)
[2022-07-07 00:31] LABS: D Dimer High Sensitivity < 150 NG/ML
[2022-07-07 00:43] LABS: Troponin-I High Sensitivity < 2.7 ng/L (<3.5-17.0)
[2022-07-07 00:44] LABS: HCG Quantitative < 2 mIU/mL
[2022-07-07 01:53] VITALS: BP 102/51; PULSE 66; RESP 12; O2SAT 96
== END 2022-07-07 02:24 | disposition home or self-care (01) ==
PROVIDERS: Emergency Provider Emergency Medicine Emergency Medical Services
DX: R07.89 Other chest pain (principal); Z79.899 Other long term (current) drug therapy
CPT/HCPCS: 36415; 71045; 80048; 84484; 84702; 85025; 85379; 93005; 99284

== ENCOUNTER 2022-09-18 09:16 | Outpatient (AMB) | payer OTHER, SELFPAY ==
[2022-09-18 09:18] VITALS: BP 102/64; PULSE 79; TEMP 36.6; O2SAT 96; BMI 25.0
--- NOTE | 2022-09-18 09:18 | A.OFFVIS_ITS ---
Intake Vital Signs 09/18/22 09:18 Height 5 ft 1 in Weight 132 lb 4.438 oz BMI 25.0 BP 102/64 Blood Pressure Location Rt brachial Position Sitting Pulse 79 Pulse Source Pulse Oximeter Temp 97.9 F Temp Source Skin Pulse Oximetry (%) 96 Intake Visit Reasons: Rheumatoid Arthritis Intake Note: * Pt seen today for RA follow up * C/o fatigue * States I don't want to use any meds Last used MTX in April. 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 Accompanied by: Self / Same As Patient Allergies ibuprofen [From MOTRIN] Allergy (Unknown, Verified 09/18/22 09:21) ASA ALLERGY methotrexate Adverse Reaction (Mild, Verified 09/18/22 09:59) Palpitations Aspirin Allergy (Unknown, Uncoded 09/18/22 09:21) anaphylaxis Medication List - Last Reconciled 09/18/22 by Clover Caballero MD acetaminophen 500 mg PO Q6H PRN albuterol sulfate 90 mcg/actuation (ProAir HFA) 2 puffs inhalation QID PRN budesonide 90 mcg/actuation (Pulmicort Flexhaler) 0 inhalations inhalation DIRECTED cetirizine 10 mg PO DAILY PRN cholecalciferol (vitamin D3) (D3-2000) 50 mcg PO DAILY fluticasone propionate 50 mcg/actuation 1 spray intranasal BID pantoprazole 40 mg PO DAILY sumatriptan succinate take 1 tab at onset of headache; if no relief may repeat 1 tab after at least 2 hrs; max = 4 tabs/24 hr PO HPI HPI Comments History of Present Illness Details 42-year-old female with seropositive RA(+RF, -ve CCP) presents for follow-up. Patient stated that she stopped methotrexate back in April due to feeling of palpitations and pressure going up her chest and into her neck and years. States that methotrexate was helping her joint pain overall. She feels fairly well overall with regards to her joint pain. She gets occasional elbow pain. She also gets intermittent knee pain. 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 She is requesting a letter to her employer asking for using a van that has a step so she does not have to take such high steps. She does not want to be started on another DMARD at this point. She states that her joints generally feel well in the summer. Initial history: This is a 41-year-old female with a past medical history of asthma, iron deficiency anemia migraines and stomach ulcers diagnosed as a child who presents for evaluation multiple joint pains and positive rheumatoid factor. Condition started more than a year ago with fatigue. She has pain in her elbows, wrists, fingers, ankles and knees. She was evaluated by Orthopedic surgery and had bilateral knee intra-articular steroid injections with some relief. Labs showed positive rheumatoid factor. She states that her elbows feel very weak after holding something for a few minutes. She has difficulty keeping her shoulders above her head. Generalized morning stiffness lasting 5 minutes. She has bilateral ankle pain as well. She denies any significant joint swelling. She denies any fevers, weight loss. History of DVT/PE. 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 Review of Systems Const Denies fever(s) and Denies weight loss Musc Reports arthralgias Physical Exam Vital Signs: Last Vital Signs Temp 97.9 F 09/18/22 09:18 Pulse 79 09/18/22 09:18 BP 102/64 09/18/22 09:18 Pulse Ox 96 09/18/22 09:18 BMI result Body Mass Index 25.0 Const General: cooperative, healthy appearing, comfortable, no acute distress and well developed Orientation/consciousness: patient oriented x3 Limitations: no limitations HEENT Head: Yes normocephalic and Yes atraumatic Mouth: Normal oral and palatal mucosa present Resp Effort & Inspection: normal respiratory effort and able to speak in complete sentences Auscultation: clear to auscultation bilaterally Cardio Rate: regular rate Rhythm: regular rhythm Heart sounds: S1 normal heart sound present and S2 normal heart sound present GI Inspection: No distended Palpation (GI): Soft to palpation and nontender Skin General skin exam: no rashes or lesions noted Neuro General: patient oriented x3 Extrem Other: No wrist or hand swelling tenderness or pain with any range of motion. Left 5th finger Heberden's node No ankle pain tenderness today Bilateral elbow tenderness to palpation but no pain with full flexion and extension Negative resisted wrist extension bilaterally Normal range of motion of shoulders Bilateral foot, MTP squeeze that produces pain on the 1st and 5th MTP Bilateral knee pain with full flexion without tenderness or swelling Results Reviewed Results Reviewed: X-RAY KNEE 4+ VIEW WITH INJURY Exam Date:11/21/2021? 2:49 PMAccession #:[id number] Ordering Diagnosis:Chronic pain of both knees ? ? EXAM: Bilateral knee x-ray ? HISTORY: Chronic bilateral knee pain. ? COMPARISON: None ? VIEWS:? 4 views performed, AP view performed weightbearing. ? FINDINGS: ? Mild joint space narrowing at the lateral patellofemoral joints.? Medial and lateral joint? spaces are maintained.? No evidence of an acute fracture or malalignment.? No destructive bone? lesion.? No joint effusion. ? IMPRESSION IMPRESSION: ? Mild joint space narrowing at the patellofemoral joints. X-RAY EXAM OF HAND, 3+ VIEWS Exam Date:07/09/2021? Ordering Diagnosis:Polyarthralgia Bilateral hand pain ? ?Bilateral hands, 3 views each:? ? Findings: ? Right hand:? There is mild degenerative spurring of the IP joint; 2nd, 3rd and 5th DIP joints. ? Left hand: There is mild degenerative spurring of the IP joint; 2nd, 3rd and 5th DIP joints. ? Bony structures are radiographically intact. There are no appreciable erosions.? There is no? fracture or dislocation. Soft tissues are unremarkable. ? IMPRESSION Mild degenerative changes of both hands as described. labs 06/2021 ANTI-NUCLEAR ANTIBODY SCREEN NEGATIVE RHEUMATOID FACTOR<15 IU/mL 113 High? Uric Acid 4.8 mg/dl LYME DISEASE ANTIBODIES NEGATIVE TOTAL IRON BINDING CAPACITY 250 - 450 ug/dL 424 IRON (FE) 40 - 150 ug/dL 31?Low? % FE SATURATION 15 - 50 % 7?Low? Assessment & Plan Assessment & Plan (1) Rheumatoid arthritis: Comment: ++RF -ve CCP dx 02/14 MTX started 02/14 effective DC 05/16 due palpitations, chest pressure Code(s): M06.9 - Rheumatoid arthritis, unspecified Qualifiers: Rheumatoid arthritis location: multiple sites Rheumatoid factor presence: with rheumatoid factor Qualified Code(s): M05.79 - Rheumatoid arthr itis with rheumatoid factor of multiple sites without organ or systems involvement Plan: 42-year-old female with seropositive RA returns for follow-up. She self discontinued methotrexate due to feeling of palpitations and chest pressure. She is currently doing fairly well overall with regards to her joint pain. She generally does better in the summer. Patient is not interested in other DMARDs at this point. Follow-up in 3 months Coding Level of Care Code Est Pt Level 3 (84321) Diagnoses Rheumatoid arthritis M05.79 Rheumatoid arthritis location: multiple sites Rheumatoid factor presence: with rheumatoid factor
== END 2022-09-18 09:42 | disposition home or self-care (01) ==
PROVIDERS: Visit Provider Student in an Organized Health Care Education/Training Program
DX: M05.79 Rheumatoid arthritis with rheumatoid factor of multiple sites without organ or systems involvement (principal)
CPT/HCPCS: 99213

== ENCOUNTER → 2022-09-18 09:16 | Outpatient (BNVA) | payer OTHER, SELFPAY | PROVIDERS: Visit Provider Student in an Organized Health Care Education/Training Program | DX: M05.79 Rheumatoid arthritis with rheumatoid factor of multiple sites without organ or systems involvement (principal) | CPT/HCPCS: 99212 ==

== ENCOUNTER 2022-11-03 07:32 | Emergency (ER) | payer OTHER, SELFPAY ==
--- NOTE | ~2022-11-03 | CT_ITS ---
EXAMINATION: CT ABDOMEN AND PELVIS WITH CONTRAST CLINICAL INFORMATION: Left lower quadrant pain. COMPARISON: None available. TECHNIQUE: Multidetector volumetric images were obtained from the superior aspect of the liver through the pubic symphysis following administration 85 mL of Omnipaque 350 intravenous contrast. Sagittal and coronal reformatted images were obtained on the technologist's workstation. Oral contrast: No. This CT examination was performed using dose optimization techniques as appropriate, variously including the following: *Automated exposure control *Adjustment of mA and/or kV according to patient size (this includes techniques or standardized protocols for targeted exams where dose is matched to indication/reason for exam; i.e. extremities or head) *Use of iterative reconstruction technique DLP: 409 mGy-cm FINDINGS: LUNG BASES: The visualized lung bases are unremarkable. LIVER, GALLBLADDER, AND BILIARY TREE: The liver is normal in size, shape, and attenuation. No focal hepatic lesion or biliary ductal dilatation is present. The gallbladder is unremarkable with no evidence of radiopaque gallstones, gallbladder wall thickening, or obvious pericholecystic inflammatory changes. PANCREAS: Unremarkable. SPLEEN: Unremarkable. ADRENAL GLANDS: Unremarkable. KIDNEYS AND URETERS: The kidneys are normal in size, shape, and attenuation. No hydronephrosis, hydroureter, or calculi seen. No perinephric stranding. BLADDER: Unremarkable. GASTROINTESTINAL TRACT: There is moderate scattered stool, diverticula and gas seen throughout the colon without distention. There is pericolic fat stranding proximal ascending colon adjacent to it. Diverticula suggestive of acute diverticulitis. There is no free air or air-fluid collection to suspect any perforation or abscess. Mild thickening of the left conal fascia is seen. The small-bowel loops are normal caliber. The appendix is normal caliber. ABDOMINAL WALL: No significant hernia is appreciated. LYMPH NODES: Normal. VASCULAR: Unremarkable. PELVIC VISCERA: The fundal uterus is enlarged with several hypoechoic lesions. There is enhancement of endometrium. The hypoechoic areas measure 61 Hounsfield units. There is a low-lying IUD in the lower endometrial canal. The cervix is unremarkable. No adnexal mass is seen. There is no free fluid. No abnormal pelvic or inguinal lymph nodes. OSSEOUS STRUCTURES: Unremarkable. CT/CT abdomen pelvis w IV con IMPRESSION: Mild constipation with colonic diverticulosis and left proximal descending colon diverticulitis. No perforation or fluid collection seen. Mild fat stranding noted. Enlarged fundal uterus with fundal hypoechoic and heterogeneous areas with enhancement, question hemorrhage versus fibroid disease. IUD lies within the lower endometrium canal. Recommend correlation with ultrasound. Fleischner guidelines were followed.
--- NOTE | ~2022-11-03 | US_ITS ---
EXAMINATION: US PELVIS CLINICAL INFORMATION: Abdominal CT. Left pelvic pain. COMPARISON: None available. TECHNIQUE: Ultrasound of the pelvis is performed using both transabdominal and transvaginal transducers along with Doppler. Transvaginal imaging is performed due to inadequate visualization transabdominally. FINDINGS: Uterus: The uterus is anteverted, anteflexed and measures 10.0 x 6.1 7.1 cm. The double wall endometrium is displaced by the fibroids but the thickness measures 0.2 cm.. There is a heterogeneous-appearing 2 lesions in the fundus suggestive of fibroids. The measure 2.7 x 1.8 x 2.1 cm and the larger lesion adjacent to it measures 3.1 x 2.6 x 3.7 the IUD is low lying within the lower uterine segment. Cm. Adnexa: Both ovaries are visualized. There is normal color flow to the adnexa. There is no ovarian torsion. There is no pelvic ascites or fluid collection. Right ovary measures 2.2 x 1.1 x 2.5 cm and volume 3.2 mL. Appears unremarkable. Left ovary measures 2.3 x 1.6 x 2.7 cm and volume 5.2 mL.. US/US pelvic complete IMPRESSION: 1. Low-lying IUD in the lower uterine segment. Findings are concordant with previous CT abdomen and pelvic exam. 2. 2 uterine fundal fibroids as described above. 3. The ovaries are unremarkable. 4. There is no free fluid in the cul-de-sac.
[2022-11-03 07:35] VITALS: BP 120/83; PULSE 104; RESP 19; TEMP 37.1; O2SAT 94; BMI 24.6
[2022-11-03 09:01] LABS: MANUAL DIFF FLAG NO
[2022-11-03 09:03] LABS: Appearance Urine Clear; Basophils Absolute Auto 0.1 X10*3/uL (0.0-0.2); Basophils Percent Auto 0.4 % (0-2); Color Urine Yellow; Eosinophils Absolute Auto 0.1 X10*3/uL (0.0-0.4); Glucose Urine UA Negative (Negative); Hematocrit 40.3 % (37.0-47.0); Hemoglobin 13.7 g/dl (12.0-16.0); Imm Gran Abs Auto 0.04 X10*3/uL (0.00-0.03); Imm Gran Pct Auto 0.3 % (0.0-0.4); Leukocyte Esterase Urine Trace (Negative); Lymphocytes Absolute Auto 1.1 X10*3/uL (1.2-4.9); Lymphocytes Percent Auto 9.4 % (20-40); Mean Corpuscular Volume 88.2 fL (80.0-98.0); Mean Platelet Volume 11.7 fL (9.4-12.3); Monocytes Absolute Auto 0.9 X10*3/uL (0.1-1.2); Monocytes Percent Auto 7.7 % (2-11); Neutrophils Absolute Auto 9.6 x10*3/uL (2.0-8.3); Neutrophils Percent Auto 81.2 % (45-73); Nitrite Urine Negative (Negative); Platelet Count 221 X10*3/uL (160-400); Red Blood Count 4.57 X10*6/uL (4.20-5.50); Red Cell Distribution Width 12.6 % (11.0-16.0); Specific Gravity - Urine 1.015 (1.005-1.025); UMIC TRIGGER UACC YES; Urine Blood Trace (Negative); Urine Ketones Negative (Negative); Urine Protein Negative (Neg-Trace); White Blood Count 11.8 X10*3/uL (4.8-10.8)
[2022-11-03 09:08] LABS: Bacteria Urine Trace (None Seen); Hyaline Casts Urine 0-2 /LPF (0-2); RBC Urine 0-2 /HPF (0-2); Squamous Epithelial Cell Urine 0-2 /HPF (0-2); WBC Urine 0-5 /HPF (0-5)
[2022-11-03 09:18] LABS: Alanine Aminotransferase 12 U/L (0-31); Albumin Level 4.2 g/dL (3.5-5.0); Alkaline Phosphatase 89 U/L (39-117); Anion Gap 10 (12-20); Aspartate Amino Transferase 19 U/L (5-31); Bilirubin Direct 0.3 mg/dL (0.0-0.5); Bilirubin Total 1.1 mg/dL (0.0-1.0); Blood Urea Nitrogen 9 mg/dL (9-16); Calcium 9.6 mg/dL (8.4-10.2); Carbon Dioxide 25 mmol/L (22-29); Chloride 107 mmol/L (96-108); Estimated Glomerular Filt Rate > 60; Glucose Random 94 mg/dL (60-115); Lipase 18 U/L (8-78); Potassium 3.5 mmol/L (3.3-5.1); Sodium 138 mmol/L (135-145); Total Protein 7.5 g/dL (6.5-8.0)
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
--- NOTE | 2022-11-03 10:00 | PC.NURSE ---
pt went to ct
[2022-11-03 10:01] LABS: HCG Quantitative < 2 mIU/mL
[2022-11-03] MEDS: 0.9 % Sodium Chloride 1,000 ML 999 ML IV (10:08)
[2022-11-03 10:16] LABS: UPreg QC Valid YES; Urine Pregnancy NEGATIVE (NEGATIVE)
[2022-11-03] MEDS: iohexoL 350 MG/ML 100 ML INFUS..BTL IV (10:23)
[2022-11-03] MEDS: Acetaminophen 325 MG TABLET 975 MG PO (11:29)
[2022-11-03 12:00] LABS: IDNOW Serial# BCCEAD1C; Influenza A Negative (Negative); Influenza B2 Negative (Negative)
[2022-11-03 12:04] LABS: Lactic Acid 0.6 mmol/L (0.5-2.0)
[2022-11-03 12:32] LABS: Influenza A PCR NEGATIVE (Negative); Influenza B PCR NEGATIVE (Negative); Resp Syncy Virus RNA Qual PCR NEGATIVE (Negative); SARS COV2 PCR INHOUSE NEGATIVE (Negative)
== END 2022-11-03 14:47 | disposition home or self-care (01) ==
PROVIDERS: Nurse Practitioner Family; Emergency Provider Emergency Medicine; PCP Internal Medicine
DX: K57.32 Diverticulitis of large intestine without perforation or abscess without bleeding (principal); M79.10 Myalgia, unspecified site; R10.32 Left lower quadrant pain; R10.2 Pelvic and perineal pain; R11.2 Nausea with vomiting, unspecified; Z20.822 Contact with and (suspected) exposure to COVID-19; Z20.828 Contact with and (suspected) exposure to other viral communicable diseases; Z79.899 Other long term (current) drug therapy
CPT/HCPCS: 0241U; 36415; 74177; 76856; 80048; 80076; 81001; 81025; 83605; 83690; 84702; 85025; 87040; 87502; 96360; 99283; 99284; Q9967

== ENCOUNTER 2022-12-04 14:10 | Outpatient (AMB) | payer OTHER, SELFPAY ==
[2022-12-04 14:25] VITALS: BP 116/68; PULSE 72; TEMP 36.6; O2SAT 98; BMI 26.7
--- NOTE | 2022-12-04 14:25 | A.OFFVIS_ITS ---
Intake Vital Signs 12/04/22 14:25 Height 5 ft 1 in Weight 141 lb 1.533 oz BMI 26.7 BP 116/68 Blood Pressure Location Rt brachial Position Sitting Pulse 72 Pulse Source Pulse Oximeter Temp 97.9 F Temp Source Skin Pulse Oximetry (%) 98 Intake Visit Reasons: RA Intake Note: Pt seen today for follow up and test results. She did not do labs. States she has been off MTX since April. Reports right foot great toe pain since yesterday, denies injury. Elevator Technician Required: No Accompanied by: Self / Same As Patient Allergies ibuprofen [From MOTRIN] Allergy (Unknown, Verified 12/04/22 14:27) ASA ALLERGY methotrexate Adverse Reaction (Mild, Verified 12/04/22 14:27) Palpitations Aspirin Allergy (Unknown, Uncoded 12/04/22 14:27) anaphylaxis Medication List - Last Reconciled 12/04/22 by Clover Caballero MD acetaminophen 500 mg PO Q6H PRN albuterol sulfate 90 mcg/actuation (ProAir HFA) 2 puffs inhalation QID PRN amoxicillin-pot clavulanate 875-125 mg 1 tab PO BID budesonide 90 mcg/actuation (Pulmicort Flexhaler) 0 inhalations inhalation DIRECTED cetirizine 10 mg PO DAILY PRN cholecalciferol (vitamin D3) (D3-2000) 50 mcg PO DAILY fluticasone propionate 50 mcg/actuation 1 spray intranasal BID pantoprazole 40 mg PO DAILY sumatriptan succinate take 1 tab at onset of headache; if no relief may repeat 1 tab after at least 2 hrs; max = 4 tabs/24 hr PO HPI HPI Comments History of Present Illness Details 42-year-old female with seropositive RA( +RF, -ve CCP) presents for follow-up. She is not on a DMARDs. She quit her job as an [employer] person as the packages were too heavy for her. 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 States that she feels well overall. Just in the morning today she started having right big toe pain. She is allergic to NSAIDs. Takes Tylenol when needed. Initial history: This is a 41-year-old female with a past medical history of asthma, iron deficiency anemia migraines and stomach ulcers diagnosed as a child who presents for evaluation multiple joint pains and positive rheumatoid factor. Condition started more than a year ago with fatigue. She has pain in her elbows, wrists, fingers, ankles and knees. She was evaluated by Orthopedic surgery and had bilateral knee intra-articular steroid injections with some relief. Labs showed positive rheumatoid factor. She states that her elbows feel very weak after holding something for a few minutes. She has difficulty keeping her shoulders above her head. Generalized morning stiffness lasting 5 minutes. She has bilateral ankle pain as well. She denies any significant joint swelling. She denies any fevers, weight loss. History of DVT/PE. 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 [place] [facility] [place] Physical Exam Vital Signs: Last Vital Signs Temp 97.9 F 12/04/22 14:25 Pulse 72 12/04/22 14:25 BP 116/68 12/04/22 14:25 Pulse Ox 98 12/04/22 14:25 BMI result Body Mass Index 26.7 Const General: cooperative, healthy appearing, comfortable, no acute distress and well developed Orientation/consciousness: patient oriented x3 Limitations: no limitations HEENT Head: Yes normocephalic and Yes atraumatic Resp Effort & Inspection: normal respiratory effort and able to speak in complete sentences Auscultation: clear to auscultation bilaterally Cardio Rate: regular rate Rhythm: regular rhythm Heart sounds: S1 normal heart sound present and S2 normal heart sound present GI Inspection: No distended Palpation (GI): Soft to palpation Skin General skin exam: no rashes or lesions noted Neuro General: patient oriented x3 Extrem Other: No wrist or hand swelling tenderness or pain with any range of motion. Left 5th finger Heberden's node No ankle pain tenderness today Left elbow pain with full flexion out swell Negative resisted wrist extension bilaterally Normal range of motion of shoulders Right big toe bunion that is mildly tender to palpation, not warm or swollen Results Reviewed Results Reviewed: X-RAY KNEE 4+ VIEW WITH INJURY Exam Date:11/21/2021? 2:49 PMAccession #:[id number] Ordering Diagnosis:Chronic pain of both knees ? ? EXAM: Bilateral knee x-ray ? HISTORY: Chronic bilateral knee pain. ? COMPARISON: None ? VIEWS:? 4 views performed, AP view performed weightbearing. ? FINDINGS: ? Mild joint space narrowing at the lateral patellofemoral joints.? Medial and lateral joint? spaces are maintained.? No evidence of an acute fracture or malalignment.? No destructive bone? lesion.? No joint effusion. ? IMPRESSION IMPRESSION: ? Mild joint space narrowing at the patellofemoral joints. X-RAY EXAM OF HAND, 3+ VIEWS Exam Date:07/09/2021? Ordering Diagnosis:Polyarthralgia Bilateral hand pain ? ?Bilateral hands, 3 views each:? ? Findings: ? Right hand:? There is mild degenerative spurring of the IP joint; 2nd, 3rd and 5th DIP joints. ? Left hand: There is mild degenerative spurring of the IP joint; 2nd, 3rd and 5th DIP joints. ? Bony structures are radiographically intact. There are no appreciable erosions.? There is no? fracture or dislocation. Soft tissues are unremarkable. ? IMPRESSION Mild degenerative changes of both hands as described. labs 06/2021 ANTI-NUCLEAR ANTIBODY SCREEN NEGATIVE RHEUMATOID FACTOR<15 IU/mL 113 High? Uric Acid 4.8 mg/dl LYME DISEASE ANTIBODIES NEGATIVE TOTAL IRON BINDING CAPACITY 250 - 450 ug/dL 424 IRON (FE) 40 - 150 ug/dL 31?Low? % FE SATURATION 15 - 50 % 7?Low? Assessment & Plan Assessment & Plan (1) Rheumatoid arthritis: Comment: ++RF -ve CCP dx 02/14 MTX started 02/14 effective DC 05/16 due palpitations, chest pressure Code(s): M06.9 - Rheumatoid arthritis, unspecified Qualifiers: Rheumatoid arthritis location: multiple sites Rheumatoid factor presence: with rheumatoid factor Qualified Code(s): M05.79 - Rheumatoid arthritis with rheumatoid factor of multiple sites without organ or systems involvement Plan: 42-year-old female with seropositive RA returns for follow-up. She is not on any DMARDs. Does not have any active synovitis on exam. Continue to monitor patient off DMARDs. Follow-up in 4 months (2) Bunion of great toe of right foot: Code(s): M21.611 - Bunion of right foot Plan: Advised patient to try to wear wide comfortable shoes, can take Tylenol as needed. Plan I spent 26 minutes reviewing patient's chart, evaluating patient, counseling patient and documenting in the chart Coding Level of Care Code Est Pt Level 4 (71085) Diagnoses Rheumatoid arthritis involving multiple sites with positive rheumatoid factor M05.79 Rheumatoid arthritis location: multiple sites Rheumatoid factor presence: with rheumatoid factor Bunion of great toe of right foot M21.611
== END 2022-12-04 14:54 | disposition home or self-care (01) ==
PROVIDERS: Visit Provider Student in an Organized Health Care Education/Training Program
DX: M05.79 Rheumatoid arthritis with rheumatoid factor of multiple sites without organ or systems involvement (principal); M21.611 Bunion of right foot
CPT/HCPCS: 99214

== ENCOUNTER → 2022-12-04 14:10 | Outpatient (BNVA) | payer OTHER, SELFPAY | PROVIDERS: Visit Provider Student in an Organized Health Care Education/Training Program | DX: M05.79 Rheumatoid arthritis with rheumatoid factor of multiple sites without organ or systems involvement (principal); M21.611 Bunion of right foot | CPT/HCPCS: 99212 ==

== ENCOUNTER 2023-03-04 14:50 | Outpatient (REF) | payer OTHER, SELFPAY ==
[2023-03-04 15:00] LABS: MANUAL DIFF FLAG NO
[2023-03-04 15:25] LABS: Basophils Absolute Auto 0.1 X10*3/uL (0.0-0.2); Eosinophils Absolute Auto 0.7 X10*3/uL (0.0-0.4); Eosinophils Percent Auto 9.3 % (0-4); Hematocrit 39.1 % (37.0-47.0); Hemoglobin 13.2 g/dl (12.0-16.0); Imm Gran Abs Auto 0.05 X10*3/uL (0.00-0.03); Imm Gran Pct Auto 0.7 % (0.0-0.4); Lymphocytes Absolute Auto 1.8 X10*3/uL (1.2-4.9); Mean Corpuscular HGB Conc 33.8 g/dl (31.0-35.0); Mean Corpuscular Hemoglobin 30.6 pg (27.0-33.0); Mean Corpuscular Volume 90.5 fL (80.0-98.0); Mean Platelet Volume 12.4 fL (9.4-12.3); Monocytes Absolute Auto 0.6 X10*3/uL (0.1-1.2); Neutrophils Absolute Auto 4.4 x10*3/uL (2.0-8.3); Platelet Count 219 X10*3/uL (160-400); Red Blood Count 4.32 X10*6/uL (4.20-5.50); Red Cell Distribution Width 12.7 % (11.0-16.0); White Blood Count 7.6 X10*3/uL (4.8-10.8)
[2023-03-04 15:59] LABS: Alanine Aminotransferase 13 U/L (0-31); Albumin Level 4.2 g/dL (3.5-5.0); Alkaline Phosphatase 88 U/L (39-117); Anion Gap 11 (12-20); Aspartate Amino Transferase 18 U/L (5-31); Bilirubin Total 0.5 mg/dL (0.0-1.0); Blood Urea Nitrogen 11 mg/dL (9-16); C Reactive Protein 0.38 mg/dL (< or = 0.50); Calcium 9.3 mg/dL (8.4-10.2); Carbon Dioxide 25 mmol/L (22-29); Chloride 105 mmol/L (96-108); Estimated Glomerular Filt Rate > 60; Glucose Random 84 mg/dL (60-115); Potassium 4.1 mmol/L (3.3-5.1); Sodium 137 mmol/L (135-145); Total Protein 7.2 g/dL (6.5-8.0)
[2023-03-04 16:06] LABS: Erythrocyte Sedimentation Rate 5 MM/HR (0-20)
== END 2023-03-04 14:51 | disposition home or self-care (01) ==
LOC: HO.LAB 14:50
PROVIDERS: PCP Internal Medicine; Visit Provider Student in an Organized Health Care Education/Training Program
DX: Z79.631 Long term (current) use of antimetabolite agent (principal)
CPT/HCPCS: 36415; 80053; 85025; 85652; 86140

== ENCOUNTER 2023-03-05 14:16 | Outpatient (AMB) | payer OTHER, SELFPAY ==
--- NOTE | 2023-03-05 14:19 | MHC.OFFVIS ---
Intake Vital Signs 03/05/23 14:20 Height 5 ft 1 in Weight 145 lb 1.027 oz BMI 27.4 BP 110/62 Blood Pressure Location Rt brachial Position Sitting Pulse 88 Pulse Source Pulse Oximeter Temp 97.6 F Temp Source Skin Pulse Oximetry (%) 98 Oxygen Delivery Method Room Air Intake Visit Reasons: Pain on both elbows,swollen fingers Intake Note: Pt with RA returns today for follow-up. She was last seen on 12/04/22. Today she has complaints of pain and swelling in elbows, hands and knees. Pain started yesterday.. She is not on any DMARDs. Char Puller Required: No Accompanied by: Self / Same As Patient Allergies ibuprofen [From MOTRIN] Allergy (Unknown, Verified 03/05/23 14:24) ASA ALLERGY methotrexate Adverse Reaction (Mild, Verified 03/05/23 14:24) Palpitations Aspirin Allergy (Unknown, Uncoded 03/05/23 14:24) anaphylaxis Medication List - Last Reconciled 03/05/23 by Clover Caballero MD acetaminophen 500 mg PO Q6H PRN albuterol sulfate 90 mcg/actuation (ProAir HFA) 2 puffs inhalation QID PRN budesonide 90 mcg/actuation (Pulmicort Flexhaler) 0 inhalations inhalation DIRECTED cetirizine 10 mg PO DAILY PRN cholecalciferol (vitamin D3) (D3-2000) 50 mcg PO DAILY fluticasone propionate 50 mcg/actuation 1 spray intranasal BID pantoprazole 40 mg PO DAILY sumatriptan succinate take 1 tab at onset of headache; if no relief may repeat 1 tab after at least 2 hrs; max = 4 tabs/24 hr PO HPI HPI Comments History of Present Illness Details 42-year-old female with seropositive RA(+RF, -ve CCP) returns for an urgent visit. She is not on a DMARDs. She states that she has been having pain in both elbows, bilateral wrist pain and weakness in her hands and fingers. She feels that her symptoms are worse in the cold weather. 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 This is her work schedule 5 days a week. She takes Tylenol 500 mg once or twice a day which provides some relief. Initial history: This is a 41-year-old female with a past medical history of asthma, iron deficiency anemia migraines and stomach ulcers diagnosed as a child who presents for evaluation multiple joint pains and positive rheumatoid factor. Condition started more than a year ago with fatigue. She has pain in her elbows, wrists, fingers, ankles and knees. She was evaluated by Orthopedic surgery and had bilateral knee intra-articular steroid injections with some relief. Labs showed positive rheumatoid factor. She states that her elbows feel very weak after holding something for a few minutes. She has difficulty keeping her shoulders above her head. Generalized morning stiffness lasting 5 minutes. She has bilateral ankle pain as well. She denies any significant joint swelling. She denies any fevers, weight loss. History of DVT/PE. 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 Review of Systems [facility] [place] arthralgias and Reports muscle weakness Physical Exam Vital Signs: Last Vital Signs Temp 97.6 F 03/05/23 14:20 Pulse 88 03/05/23 14:20 BP 110/62 03/05/23 14:20 Pulse Ox 98 03/05/23 14:20 Oxygen Delivery Method Room Air 03/05/23 14:20 BMI result Body Mass Index 27.4 Const General: cooperative, healthy appearing, comfortable, no acute distress and well developed Orientation/consciousness: patient oriented x3 Limitations: no limitations HEENT Head: Yes normocephalic and Yes atraumatic Resp Effort & Inspection: normal respiratory effort and able to speak in complete sentences Skin General skin exam: no rashes or lesions noted Neuro General: patient oriented x3 Extrem Other: No wrist or hand swelling tenderness or pain with any range of motion. Few tender Heberden's nodes No ankle pain tenderness today Tenderness at the common extensor origin at the lateral epicondyle bilaterally Negative resisted wrist extension bilaterally Negative rotator cuff provocative maneuvers bilaterally Negative Speed's test bilaterally Normal range of motion of shoulders Right big toe bunion that is mildly tender to palpation, not warm or swollen Results Reviewed Results Reviewed: X-RAY KNEE 4+ VIEW WITH INJURY Exam Date:11/21/2021? 2:49 PMAccession #:[id number] Ordering Diagnosis:Chronic pain of both knees ? ? EXAM: Bilateral knee x-ray ? HISTORY: Chronic bilateral knee pain. ? COMPARISON: None ? VIEWS:? 4 views performed, AP view performed weightbearing. ? FINDINGS: ? Mild joint space narrowing at the lateral patellofemoral joints.? Medial and lateral joint? spaces are maintained.? No evidence of an acute fracture or malalignment.? No destructive bone? lesion.? No joint effusion. ? IMPRESSION IMPRESSION: ? Mild joint space narrowing at the patellofemoral joints. X-RAY EXAM OF HAND, 3+ VIEWS Exam Date:07/09/2021? Ordering Diagnosis:Polyarthralgia Bilateral hand pain ? ?Bilateral hands, 3 views each:? ? Findings: ? Right hand:? There is mild degenerative spurring of the IP joint; 2nd, 3rd and 5th DIP joints. ? Left hand: There is mild degenerative spurring of the IP joint; 2nd, 3rd and 5th DIP joints. ? Bony structures are radiographically intact. There are no appreciable erosions.? There is no? fracture or dislocation. Soft tissues are unremarkable. ? IMPRESSION Mild degenerative changes of both hands as described. labs 06/2021 ANTI-NUCLEAR ANTIBODY SCREEN NEGATIVE RHEUMATOID FACTOR<15 IU/mL 113 High? Uric Acid 4.8 mg/dl LYME DISEASE ANTIBODIES NEGATIVE Assessment & Plan Assessment & Plan (1) Rheumatoid arthritis: Comment: ++RF -ve CCP dx 02/14 MTX started 02/14 effective DC 05/16 due palpitations, chest pressure Code(s): M06.9 - Rheumatoid arthritis, unspecified Qualifiers: Rheumatoid arthritis location: multiple sites Rheumatoid factor presence: with rheumatoid factor Qualified Code(s): M05.79 - Rheumatoid arthritis with rheumatoid factor of multiple sites without organ or systems involvement Plan: 42-year-old female with seropositive RA returns for follow-up. She is not on any DMARDs. Her complaints today are likely mechanical and degenerative in nature with bilateral tennis elbow. 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 I referred patient to OT. Patient is allergic to ibuprofen and aspirin. Advised patient to try using Tylenol 1000 mg t.i.d.. Try applying Voltaren gel on affected areas. Stop Voltaren if she develops any allergic side effects. I do not see any need for DMARDs Excuse letter provided to employer Follow-up as needed (2) Bilateral tennis elbow: Code(s): M77.11 - Lateral epicondylitis, right elbow; M77.12 - Lateral epicondylitis, left elbow Plan: Referred to OT Plan I spent 26 minutes reviewing patient's chart, evaluating patient, placing orders, counseling patient and documenting in the chart Orders: Orders OT Evaluation and Treatment Today M77.00 - Medial epicondylitis, unspecified elbow, M77.11 - Lateral epicondylitis, right elbow, M77.12 - Lateral epicondylitis, left elbow Coding Level of Care Code Est Pt Level 4 (91038) Diagnoses Rheumatoid arthritis involving multiple sites with positive rheumatoid factor M05.79 Rheumatoid arthritis location: multiple sites Rheumatoid factor presence: with rheumatoid factor Bilateral tennis elbow M77.11; M77.12
[2023-03-05 14:20] VITALS: BP 110/62; PULSE 88; TEMP 36.4; O2SAT 98; BMI 27.4
== END 2023-03-05 14:49 | disposition home or self-care (01) ==
PROVIDERS: Visit Provider Student in an Organized Health Care Education/Training Program
DX: M05.79 Rheumatoid arthritis with rheumatoid factor of multiple sites without organ or systems involvement (principal); M77.11 Lateral epicondylitis, right elbow; M77.12 Lateral epicondylitis, left elbow
CPT/HCPCS: 99214

== ENCOUNTER → 2023-03-05 14:16 | Outpatient (BNVA) | payer OTHER, SELFPAY | PROVIDERS: Visit Provider Student in an Organized Health Care Education/Training Program | DX: M05.79 Rheumatoid arthritis with rheumatoid factor of multiple sites without organ or systems involvement (principal); M77.11 Lateral epicondylitis, right elbow; M77.12 Lateral epicondylitis, left elbow | CPT/HCPCS: 99212 ==

== ENCOUNTER 2023-03-21 03:58 | Emergency (ER) | payer OTHER, SELFPAY ==
[2023-03-21 03:59] VITALS: BP 126/74; PULSE 118; RESP 20; TEMP 38.2; O2SAT 94; BMI 27.4
[2023-03-21] MEDS: Acetaminophen 325 MG TABLET 650 MG PO (04:04)
[2023-03-21 04:21] LABS: IDNOW Serial# 08D9AD1C; Influenza A Positive (Negative)
[2023-03-21 04:24] LABS: COVID-19 Test Negative (Negative); IDNOW Serial# 152EDE1D
[2023-03-21 04:27] LABS: Influenza B2 Negative (Negative)
--- NOTE | 2023-03-21 05:16 | ED_ITS ---
HPI - General Adult General Chief complaint: General Medical Stated complaint: body pain Time Seen by Provider: 03/21/23 05:16 Source: patient Limitations: no limitations History of Present Illness HPI narrative: Patient started having upper respiratory symptoms since 16:30 with body aches cough running nose sore throat no other family member sick Related Data Home Medications Medication Instructions Recorded Confirmed albuterol sulfate 90 mcg/actuation 2 puff inhalation QID PRN wheezing 12/27/21 09/18/22 aerosol inhaler (ProAir HFA) budesonide 90 mcg/actuation breath 0 inh inhalation DIRECTED 12/27/21 09/18/22 activated powder inhaler (Pulmicort Flexhaler) cetirizine 10 mg tablet 10 mg PO DAILY PRN allergies 12/27/21 09/18/22 fluticasone propionate 50 1 spray intranasal BID 12/27/21 09/18/22 mcg/actuation nasal spray,suspension pantoprazole 40 mg tablet,delayed 40 mg PO DAILY 12/27/21 09/18/22 release sumatriptan succinate 50 mg tablet See Rx Instructions PO .COMPLEX 12/27/21 09/18/22 cholecalciferol (vitamin D3) 50 50 mcg PO DAILY 03/27/22 09/18/22 mcg (2,000 unit) capsule (D3-2000) Previous Rx's Medication Instructions Recorded acetaminophen 500 mg capsule 500 mg PO Q6H PRN fever or pain 02/23/22 #14 caps acetaminophen 500 mg tablet 500 mg PO Q6H PRN fever or pain 03/21/23 (Tylenol Extra Strength) #30 tabs benzonatate 200 mg capsule 200 mg PO TID PRN cough #20 caps 03/21/23 oseltamivir 75 mg capsule (Tamiflu) 75 mg PO BID 5 days #10 caps 03/21/23 Allergies Allergy/AdvReac Type Severity Reaction Status Date / Time ibuprofen [From MOTRIN] Allergy Unknown ASA ALLERGY Verified 03/21/23 04:02 methotrexate AdvReac Mild Palpitation Verified 03/21/23 04:02 s Aspirin Allergy Unknown anaphylaxis Uncoded 03/05/23 14:24 Review of Systems Review of Systems: Yes all other systems are reviewed and are negative PMFSH Past Medical History Medical History Iron deficiency anemia Asthma Migraines Stomach ulcer Surgical History H/O tubal ligation Family History Family History Father Arthritis Mother Osteoporosis Social History Social History Household Members: Spouse and Children Alcohol intake: never Patient Tobacco Use Status: Never used Tobacco Advance Directives: No Advance Directives Information Provided: Yes Current occupational status: employed 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 Oriented X3. No acute distress. ENT: Pharynx normal. Oral Mucosa moist Neck: Normal inspection. Neck supple. CVS: Normal heart rate and rhythm. Pulses normal. Respiratory: No respiratory distress. Equal air entry bilateral, no wheezing/rales/rhonchi Skin: Skin warm and dry. Normal skin color. Normal skin turgor. Extremities: No lower extremity edema. Neuro: Oriented X 3. Medications Administered Discontinued Medications Generic Name Dose Route Start Last Admin Trade Name Freq PRN Reason Stop Dose Admin Acetaminophen 650 mg 03/21/23 04:03 03/21/23 04:04 Acetaminophen 325 Mg Tablet PO 03/21/23 04:04 650 mg ONCE ONE Administration Medical Decision Making Lab Data Labs: Lab Results 03/21/23 Range/Units 04:07 COVID-19 (CICI) Negative (Negative) COVID-19 Clin Com See Note Influenza Type A (LISA) Positive A (Negative) Influenza Type B (LISA) Negative (Negative) Influenza A & B Note See Note Discharge Plan Discharge Clinical Impression: Influenza A Patient Disposition: Home, Self-Care Instructions: Influenza (ED) Additional Instructions: Drink plenty of fluid Tylenol/Motrin for the fever body aches Take Tamiflu as prescribed Cough drops as prescribed Prescriptions: New oseltamivir [Tamiflu] 75 mg capsule 75 mg PO BID 5 Days Qty: 10 0RF acetaminophen [Tylenol Extra Strength] 500 mg tablet 500 mg PO Q6H PRN (Reason: fever or pain) Qty: 30 0RF benzonatate 200 mg capsule 200 mg PO TID PRN (Reason: cough) Qty: 20 0RF No Action acetaminophen 500 mg capsule 500 mg PO Q6H PRN (Reason: fever or pain) Qty: 14 0RF pantoprazole 40 mg tablet,delayed release (DR/EC) 40 mg PO DAILY Pulmicort Flexhaler 90 mcg/actuation aerosol powdr breath activated 0 inh inhalation DIRECTED fluticasone propionate 50 mcg/actuation spray,suspension 1 spray intranasal BID cetirizine 10 mg tablet 10 mg PO DAILY PRN (Reason: allergies) albuterol sulfate [ProAir HFA] 90 mcg/actuation HFA aerosol inhaler 2 puff inhalation QID PRN (Reason: wheezing) sumatriptan succinate 50 mg tablet See Rx Instructions PO .COMPLEX Rx Instructions: take 1 tab at onset of headache; if no relief may repeat 1 tab after at least 2 hrs; max = 4 tabs/24 hr PO cholecalciferol (vitamin D3) [D3-2000] 50 mcg (2,000 unit) capsule 50 mcg PO DAILY
[2023-03-21 05:20] VITALS: TEMP 37.4
[2023-03-21] MEDS: Oseltamivir Phosphate 75 MG CAPSULE PO (05:38)
== END 2023-03-21 05:58 | disposition home or self-care (01) ==
PROVIDERS: Emergency Provider Internal Medicine
DX: J10.1 Influenza due to other identified influenza virus with other respiratory manifestations (principal); Z11.52 Encounter for screening for COVID-19
CPT/HCPCS: 87502; 87635; 99283

== ENCOUNTER 2024-11-25 14:23 | Outpatient (AMB) | payer OTHER, SELFPAY ==
--- NOTE | 2024-11-25 14:24 | A.OFFVIS_ITS ---
Vital Signs 11/25/24 14:32 Height 5 ft 1 in Weight 138 lb 3.677 oz BMI 26.1 BP 112/62 Blood Pressure Location Lt brachial Position Sitting Pulse 87 Pulse Source Pulse Oximeter Pulse Oximetry (%) 98 Oxygen Delivery Method Room Air Intake Visit Reasons: RA Intake Note: Patient presents for RA follow up. Allergies ibuprofen (From MOTRIN) Allergy (Unknown, Verified 11/25/24 14:32) ASA ALLERGY methotrexate Adverse Reaction (Mild, Verified 11/25/24 14:32) Palpitations Aspirin Allergy (Unknown, Uncoded 03/05/23 14:24) anaphylaxis HPI Comments Details: Patient is a 44-year-old female with asthma, GERD, and seropositive rheumatoid arthritis here today for follow up Interval History: Patient last seen 03/05/[address] Caballero - Not on DMARDs - Urgent visit - She states that she has been having pain in both elbows, bilateral wrist pain and weakness in her hands and fingers. She feels that her symptoms are worse in the cold weather. She works at a [employer] from 06:00 to 14:00 then works at [employer] from 15:00 to 21:00. This is her work schedule 5 days a week. She takes Tylenol 500 mg once or twice a day which provides some relief. - diagnosed as bilateral tennis elbow and sent to occupational therapy. - Initially recommended methotrexate but had side effects and patient did not want to pursue any further immunosuppression - She was discharged from clinic with prn follow up Today - no on any DMARDs - Worsening joint pain over the past year and a half - Joint pain: hands, wrists and elbows - Feels like she can't carry things properly and will drop them - AM stiffness lasting for about an hour - Joint swelling noted more in the afternoon, specifically in the medial aspect of the wrist Rheumatologic History: ++RF -ve CCP dx 02/14 MTX started 02/14 effective DC 05/16 due palpitations, chest pressure Initial history: This is a 41-year-old female with a past medical history of asthma, iron deficiency anemia migraines and stomach ulcers diagnosed as a child who presents for evaluation multiple joint pains and positive rheumatoid factor. Condition started more than a year ago with fatigue. She has pain in her elbows, wrists, fingers, ankles and knees. She was evaluated by Orthopedic surgery and had bilateral knee intra-articular steroid injections with some relief. Labs showed positive rheumatoid factor. She states that her elbows feel very weak after holding something for a few minutes. She has difficulty keeping her shoulders above her head. Generalized morning stiffness lasting 5 minutes. She has bilateral ankle pain as well. She denies any significant joint swelling. She denies any fevers, weight loss. History of DVT/PE. 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 Review of Systems Const Details: Review of Systems Constitutional: Denies fever, chills, weight loss ENT: Denies vision changes, eye pain or eye redness, dental caries, dry mouth GI: Denies nausea, vomiting, diarrhea, abdominal pain, change in BM Pulm: Denies SOB, CURRIE, hemoptysis, wheezing Cards: Denies chest pain, palpitations Skin: Denies Raynaud's, rash, nail changes, photosensitivity, STRUCTURAL ENGINEER: Denies headaches, weakness, paresthesias, recurrent falls MSK: as per HPI All other systems reviewed and are unremarkable except noted above Physical Exam Exam Exam: Vital signs reviewed Physical Examination CONSTITUITIONAL Patient alert and cooperative. Well appearing and in no apparent painful distress MSK Hands * Right Hand: Able to make a fist. No swelling but TTP of the DIPs and PIPs. No TTP of the MCPs, PIPs or DIPs. Herbedens nodes felt * Left Hand: Able to make a fist. No swelling but TTP of the DIPs and PIPs. No TTP of the MCPs, PIPs or DIPs. Herbedens nodes felt * Positive 1st CMC grind test bilaterally Wrists * Right Wrist: Full ROM to flexion and extension. No swelling or TTP * Left Wrist: Full ROM to flexion and extension. No swelling or TTP Elbows * Right Elbow: Full ROM. No swelling or TTP. TTP of the medial epicondyle. No TTP of the lateral epicondyle * Left Elbow: Full ROM. No swelling or TTP. TTP of the medial epicondyle. No TTP of the lateral epicondyle Shoulders * Right shoulder: Full ROM. No swelling noted. No TTP of the AC joint. No TTP of the subacromial bursa. No TTP of the posterior shoulder * Left shoulder: Full ROM. No swelling noted. No TTP of the AC joint. No TTP of the subacromial bursa. No TTP of the posterior shoulder Knees * Right knee: Full ROM. No swelling noted. No TTP of the knee joint line. TTP of pes anserine bursa * Left knee: Full ROM. No swelling noted. No TTP of the knee joint line. TTP of pes anserine bursa. Ankles * Right ankle: Good ankle dorsiflexion and plantar flexion. No swelling. No TTP of the ankle joint * Left ankle: Good ankle dorsiflexion and plantar flexion. No swelling. No TTP of the ankle joint Feet * Right foot: Negative squeeze test * Left foot: Negative squeeze test Tender points? * No tenderness to palpation of the bilateral trapezius, supraspinatus, anterior costochondral junctions, bilateral suboccipital muscle insertions SKIN No rashes Vital Signs: Last Vital Signs Pulse 87 11/25/24 14:32 BP 112/62 11/25/24 14:32 Pulse Ox 98 11/25/24 14:32 Oxygen Delivery Method Room Air 11/25/24 14:32 BMI result Body Mass Index 26.1 Results Reviewed Results Reviewed: Laboratory Tests 12/28/21 16:09 Rheumatoid Factor 59.1 H Cycl Citrul Peptide IgG <16 ION Screen NEGATIVE Laboratory Tests 03/04/23 14:59 WBC 7.6 RBC 4.32 Hgb 13.2 Hct 39.1 Plt Count 219 ESR 5 Sodium 137 Potassium 4.1 Chloride 105 Carbon Dioxide 25 BUN 11 Creatinine 0.71 AST 18 ALT 13 C-Reactive Protein 0.38 XR Bilateral Hand/Wrists 05/2021 FINDINGS: Right: Bone alignment is normal. No fracture or dislocation. There is a small subchondral cyst in the proximal phalanx of the thumb at the ends the MCP joint. Joint spaces are otherwise normal. Soft tissues are normal. Left: Bone alignment is normal. No fracture or dislocation. Joint spaces are normal. Soft tissues are normal. IMPRESSION: Small cyst at the right first MCP joint. Otherwise unremarkable exam. Assessment & Plan Assessment & Plan (1) Rheumatoid arthritis: Comment: ++RF -ve CCP dx 02/14 MTX started 02/14 effective DC 05/16 due palpitations, chest pressure Code(s): M06.9 - Rheumatoid arthritis, unspecified Category: Medical Qualifiers: Rheumatoid arthritis location: multiple sites Rheumatoid factor presence: with rheumatoid factor Qualified Code(s): M05.79 - Rheumatoid arthritis with rheumatoid factor of multiple sites without organ or systems involvement Plan: #Seropositive Rheumatoid Arthritis Patient is a 44 y.o. female with seropositive RA here today for follow up Has some TTP of the PIPs and DIPs today Also some degenerative changes in the hands with Herbedens nodes noted bilaterally Unsure if this is a true RA picture but she does have the elevated RF and TTP of the PIPs so we will start medication Plan - Start Hydroxychloroquine 200mg bid - Labs today: CBC, CMP, ESR, CRP, Hepatitis panel and T spot - Recommended compression stockings for leg swelling at the end of the day - RTC 4 months - Labs before visit: CBC, CMP, ESR, CRP (2) Encounter for monitoring of hydroxychloroquine therapy: Code(s): Z51.81 - Encounter for therapeutic drug level monitoring; Z79.899 - Other fpc (current) drug therapy Plan: #Long-term Use of Hydroxychloroquine Discussed with patient the risks and benefits of hydroxychloroquine in managing the rheumatic condition Benefits include: - Reduced pain, reduce mortality, maintenance of remission and reduction of flares Risks include: - GI upset, skin hyperpigmentation, retinal toxicity (especially after more than 5 years of use), myopathy Advised yearly ophthalmology visits Plan I spent 30 minutes reviewing the record and labs, taking a history, examining the patient, discussing the treatment plan, ordering diagnostic work up and documenting in the medical record Coding Level of Care Code Est Pt Level 4 (92581) Complex EM visit Add On G2211 Diagnoses Rheumatoid arthritis involving multiple sites with positive rheumatoid factor M05.79 Rheumatoid arthritis location: multiple sites Rheumatoid factor presence: with rheumatoid factor Encounter for monitoring of hydroxychloroquine therapy Z51.81; Z79.899
[2024-11-25 14:32] VITALS: BP 112/62; PULSE 87; O2SAT 98; BMI 26.1
--- OUTSIDE RECORDS SUMMARY | 2024-11-25 16:00 | XMS_ITS | Clinical Summary ---
Author Organization [address] [place] [address] [place] [phone] Phone Care Team Providers Care Rotor Balancer Name Role Phone Roland Matamoros MD Primary Care Provider [phone] Allergies Active Allergy Reactions Criticality Noted Date Comments Aspirin 01/27/2024 Medications cholecalciferol (Vitamin D3) 50 mcg (2,000 unit) capsule Take 1 capsule (2,000 Units total) by mouth 1 (one) time each day. 90 each 3 05/27/2024 05/28/19 26 Active tacrolimus (PROTOPIC) 0.1 % ointment APPLY TO AFFECTED AREA TWICE A DAY 100 g 07/21/2024 Active Active Problems Problem Noted Date Diagnosed Date Vitamin D deficiency 05/27/2024 Heartburn 03/02/2024 Migraines 03/02/2024 Intramural leiomyoma of uterus 03/25/2022 Rheumatoid arthritis ([facility] V24, [facility] V28) 11/05/2021 Asthma 07/06/2021 Encounters Date Type Department Care Team Description 10/26/2024 3:01 PM EDT - 10/26/2024 11:59 PM EDT Hospital Encounter Radiology Department - [address] [phone] Abnormal mammogram Discharge Disposition: Home or Self Care 09/30/2024 2:37 PM EDT - 09/30/2024 11:59 PM EDT Hospital Encounter Radiology Department - [address] [phone] Encounter for screening mammogram for breast cancer Discharge Disposition: Home or Self Care from Last 3 Months Immunizations Immunization Administration Dates Next Due Influenza trivalent, with pr eservative (Fluzone; Afluria) 6mo and older 11/09/2015 Influenza, Unspecified 12/02/2013 PPD Test 08/26/2014 Pneumococcal conjugate 20 va lent (Prevnar 20, PCV 20) 2mo and older 04/18/2022 Tdap Tetanus diptheria acell ular pertussis (Boostrix; Adacel) 7yo and older 06/03/2020,08/26/2014 Surgical History Surgery Date Site/Laterality Comments TUBAL LIGATION 2002 Medical History Medical History Date Comments Heartburn Gastric ulcer Migraines Rheumatoid arthritis ([facility] V24, [facility] V28) 11/05/2021 Diverticulosis History of diverticulitis Vitamin D deficiency 05/27/2024 Family History Medical History Relation Name Comments Breast cancer Aunt m 40s Aunt on mother s side Hypertension Father cad Asthma Mother Other cancer Paternal Grandmother mouth / stomach Relation Name Status Comments Aunt m 40s Alive Father Alive Mother Alive Paternal Grandmother Social History Tobacco Use Types Packs/Day Years Used Date Smoking Tobacco: Never Smokeless Tobacco: Never Tobacco Cessation:Counseling Given: Not Answered Alcohol Use Standard Drinks/Week Comments No 0 (1 standard drink = 0.6 oz pur e alcohol) Comments No Sex and Gender Information Value Date Recorded Sex Assigned at Not on file Legal Sex Female 9:05 AM EST Gender Identity Not on file Sexual Orientation Not on file Obstetrics History Para Term AB IAB SAB Ectopic Multiple Livin g Live Births 4 4 4 4 Date Outcome GA Total Labor Labor/2nd/3rd Weight Sex Type Anes PTL Andra A1 A5 Name Clin Term Term Term Term Last Filed Vital Signs Vital Sign Reading Time Taken Comments Blood Pressure 100/66 06/24/2024 3:26 PM EDT Pulse 76 06/24/2024 3:26 PM EDT Temperature 36.8 C (98.2 F) 06/24/2024 3:26 PM EDT Respiratory Rate 16 06/24/2024 3:26 PM EDT Oxygen Saturation 98% 05/27/2024 2:30 PM EDT Inhaled Oxygen Concentration - - Weight 60.3 kg (133 lb) 06/24/2024 3:26 PM EDT Height 154.9 cm (5' 1 ) 06/24/2024 3:26 PM EDT Body Mass Index 25.13 06/24/2024 3:26 PM EDT Plan of Treatment Upcoming Encounters Date Type Department Care Team (Late st Contact Info) Description 04/27/2025 4:00 PM EST Appointment Radiology Department [address] [phone] Health Maintenance Due Date Last Done Comments Colorectal Cancer Screening: Colonoscopy 1978 Hepatitis B Vaccines (1 of 3 - 19+ 3-dose series) 1997 Social Influencers of Health Screening 02/02/2022 Depression Screening 02/25/2024 04/30/2023 COVID-19 Vaccine ( season) 2024 02/06/2021, 06/17/2020, 05/20/2020 Influenza Vaccine (#1) 2024 11/09/2015, 2013 Cervical Cancer Screening: HPV 11/07/2025 11/07/2020 Breast Cancer Screening 10/26/2026 10/27/19, 09/30/2024, 09/25/2023, Additional history exists Cholesterol Screening (Lipid Panel) 04/18/2027 04/18/2022 DTaP,Tdap,and Td Vaccines (3 - Td or Tdap) 06/03/2030 06/03/2020, 08/26/2014 RSV Immunization Adult Patients (1 - 1-dose 75+ series) 2053 Hepatitis C Screening Completed 04/27/2020 HIV Screening Completed 08/21/2020 Pneumococcal Vaccine: Pediatrics (0 to 5 Years) and At-Risk Patients (6 to 49 Years) Completed 04/18/2022 HIB Vaccines Aged Out No longer eligi ble based on patient's age to complete this topic HPV Vaccines Aged Out No longer eligi ble based on patient's age to complete this topic Hepatitis A Vaccines Aged Out No long er eligible based on patient's age to complete this topic IPV Vaccines Aged Out No longer eligi ble based on patient's age to complete this topic MMR Vaccines Aged Out No longer eligi ble based on patient's age to complete this topic Meningococcal ACWY Vaccine Aged Out N o longer eligible based on patient's age to complete this topic Meningococcal B Vaccine Aged Out No l onger eligible based on patient's age to complete this topic RSV Immunization Patients Under 20 months Aged Out No longer eligible based on patient's age to complete this topic Varicella Vaccines Aged Out No longer eligible based on patient's age to complete this topic Procedures Procedure Name Priority Date/Time Associated Diagnosis Comments MG MAMMO DIAGNOSTIC ADDL VIEWS RIGHT Routine 10/26/2024 3:22 PM EDT Abnormal mammogram MG MAMMO DIGITAL SCREENING W MENDEZ BILAT Routine 09/30/2024 2:55 PM EDT Encounter for screening mammogram for breast cancer DEPRESSION SCREENING Routine 04/30/2023 LIPID PANEL Routine 04/18/2022 HPV Routine 11/07/2020 HIV SCREENING Routine 08/21/2020 HEPATITIS C SCREENING Routine 04/27/2020 from Last 3 Months or Most Recently Relevant to Health Maintenance Results * MG Mammo Diagnostic Addl Views Right (10/26/2024 3:22 PM EDT) Anatomical Region Laterality Modality Breast Right Mammography 10/26/2024 3:22 PM EDT Narrative 10/26/2024 3:26 PM EDT Diagnostic mammogram of the right breast. History microcalcifications in the inferomedial posterior right breast. Comparison with prior examinations from 03/05/2022, 09/25/2023 and 09/30/2024. Magnification views of the right breast in CC and straight lateral projections were obtained. Breast tissue is heterogeneously dense limiting sensitivity of mammography. Cluster of the microcalcifications in the posterior inferior medial right breast did not change significantly on nonmagnified views from 09/25/2023. On magnification views it revealed punctate and small in appearance and appears to be loosely grouped and probably benign. No new suspicious abnormalities were identified. CONCLUSIONS: Probably benign microcalcifications in the inferomedial right breast. Follow-up is recommended in 6 months which could be limited to magnification views. Appointment is scheduled. BIRADS 3, probably benign findings. -------- FINAL REPORT -------- Dictated By: Erlinda Carrasquillo Dictated Date: 10/26/2024 15:22 ET Assigned Physician: Erlinda Carrasquillo Reviewed and Electronically Signed By: Erlinda Carrasquillo Signed Date: 10/26/2024 15:26 ET Workstation ID: [id number] Transcribed By: Self Edit Transcribed Date: 10/26/2024 15:22 ET Procedure Note Erlinda Carrasquillo MD - 10/26/2024 Diagnostic mammogram of the right breast. History microcalcifications in the inferomedial posterior right breast. Comparison with prior examinations from 03/05/2022, 09/25/2023 and09/30/2024. Magnification views of the right breast in CC and straight lateralprojections were obtained. Breast tissue is heterogeneously dense limiting sensitivity ofmammography. Cluster of the microcalcifications in the posterior inferiormedial right breast did not change significantly on nonmagnified viewsfrom 09/25/2023. On magnification views it revealed punctate and small in appearance andappears to be loosely grouped and probably benign. No new suspiciousabnormalities were identified. CONCLUSIONS: Probably benign microcalcifications in the inferomedial rightbreast. Follow-up is recommended in 6 months which could be limited tomagnification views. Appointment is scheduled. BIRADS 3, probably benign findings. -------- FINAL REPORT -------- Dictated By: Erlinda Carrasquillo Dictated Date: 10/26/2024 15:22 ET Assigned Physician: Erlinda Carrasquillo Reviewed and Electronically Signed By: Erlinda Carrasquillo Signed Date: 10/26/2024 15:26 ET Workstation ID: [id number] Transcribed By: Self Edit Transcribed Date: 10/26/2024 15:22 ET us Roland Matamoros MD IMG BI PROCEDURES Final Result * (ABNORMAL) MG Mammo Digital Screening w Mendez bilat (09/30/2024 2:55 PM EDT) Anatomical Region Laterality Modality Breast Bilateral Mammography 10/04/2024 11:1 8 AM EDT Impressions 10/04/2024 11:22 AM EDT Recommend additional imaging on the right. No new suspicious finding on the left. The radiology department will recall the patient. CALLBACK VIEWS: Right magnification ML and CC views BREAST DENSITY: C - The breasts are heterogeneously dense which may obscure small masses. BI-RADS CATEGORY: 0 - INCOMPLETE - NEED ADDITIONAL IMAGING EVALUATION RECOMMENDATION: Right Breast Magnification Views are recommended. Screening left mammogram is recommended in 1 year. Mammo Location: [facility], [address] [place] [address], [id number], . -------- FINAL REPORT -------- Dictated By: Elma Oquendo Dictated Date: 10/04/2024 11:18 ET Assigned Physician: lEma Oquendo Reviewed and Electronically Signed By: Elma Oquendo Signed Date: 10/04/2024 11:22 ET Workstation ID: [id number] Transcribed By: Self Edit Transcribed Date: 10/04/2024 11:18 ET Narrative 10/04/2024 11:22 AM EDT EXAM: Screening mammogram CLINICAL: 44 years old, Female, routine annual exam. COMPARISON: 09/25/2023 and as far back as 03/05/2022 TECHNIQUE: Bilateral MLO and CC views were obtained digitally with digital breast tomosynthesis. Computer-aided detection was utilized in evaluation of this exam (CAD). FINDINGS: Grouping of calcifications in the posterior lower inner right breast. Additional imaging evaluation recommended to better assess morphology. Additional imaging of these these calcifications was recommended on 09/25/2023 but not performed. Calcifications are partially imaged on the MLO view. Otherwise, no new suspicious mass, architectural distortion, or suspicious calcifications in either breast. Roland Matamoros MD IMG BI PROCEDURES Final Result * Depression Screening (04/30/2023) Depression Screening Abstracted Historical Provider HEALTH MAINTENANCE Final Result * (ABNORMAL) Lipid panel (04/18/2022) [facility] LDL/HDL Ratio 4 0 - 4 Triglycerides 145 0 - 150 mg/dL Cholesterol 190 0 - 200 mg/dL HDL 55 >=40 mg/dL LDL Cholesterol 106(A) 0 - 100 mg/dL Blood Venous blood specimen / Unknown [facility] Provider LAB BLOOD ORDERABLES Esther l Result * Cervical Cancer Screening: HPV (11/07/2020) [facility] Cervical Cancer Screening: HPV Negative, Abstracted Result [facility] Provider HEALTH MAINTENANCE Final Result * HIV Screening (08/21/2020) [facility] HIV Screening Abstracted Result [facility] Provider HEALTH MAINTENANCE Final Result * Hepatitis C Screening (04/27/2020) [facility] Hepatitis C Screening Abstracted Result [facility] Provider HEALTH MAINTENANCE Final Result from Last 3 Months or Most Recently Relevant to Health Maintenance Insurance [employer] Care Teams Rotor Balancer Relationship Specialty Start Date End Date Roland Matamoros MD [address] [place] [phone] PCP - General Internal Medicine 06/15/21
--- OUTSIDE RECORDS SUMMARY | 2024-11-25 16:00 | XMS_ITS ---
Author Name [facility] Organization Unknown Care Team Organization Name Specialty Phone Email Start Date End Da te [facility] KHUSHBU ANNABELLE Primary Care 01/01/2022 4
== END 2024-11-25 15:06 | disposition home or self-care (01) ==
LOC: HO.RHES 14:24
PROVIDERS: PCP Internal Medicine; Visit Provider Student in an Organized Health Care Education/Training Program
DX: M05.79 Rheumatoid arthritis with rheumatoid factor of multiple sites without organ or systems involvement (principal); Z51.81 Encounter for therapeutic drug level monitoring; Z79.899 Other long term (current) drug therapy
CPT/HCPCS: 99214

== ENCOUNTER 2024-11-25 14:23 | Outpatient (REF) | payer OTHER, SELFPAY ==
[2024-11-25 17:50] LABS: Hemoglobin 7.2 g/dl (12.0-16.0); NRBC Abs Auto 0.000 X10*3/uL (0.0-0.012); NRBC Pct Auto 0.0 /100WBC (0.0-0.2); SCAN SMEAR FLAG 1
[2024-11-25 17:51] LABS: Hematocrit 26.1 % (37.0-47.0); Imm Gran Abs Auto 0.05 X10*3/uL (0.00-0.03); Imm Gran Pct Auto 0.7 % (0.0-0.4); Lymphocytes Absolute Auto 2.0 X10*3/uL (1.2-4.9); MANUAL DIFF FLAG SCAN; Mean Corpuscular HGB Conc 27.6 g/dl (31.0-35.0); Mean Corpuscular Hemoglobin 17.7 pg (27.0-33.0); Platelet Count 269 X10*3/uL (160-400); Red Blood Count 4.07 X10*6/uL (4.20-5.50); White Blood Count 7.6 X10*3/uL (4.8-10.8)
[2024-11-25 18:02] LABS: Mean Corpuscular Volume 64.1 fL (80.0-98.0); PLT ABN DIST 1
[2024-11-25 18:07] LABS: Alanine Aminotransferase 18 U/L (0-31); Albumin Level 4.6 g/dL (3.5-5.0); Alkaline Phosphatase 80 U/L (39-117); Anion Gap 12 (12-20); Aspartate Amino Transferase 22 U/L (5-31); Blood Urea Nitrogen 16 mg/dL (9-16); Calcium 9.2 mg/dL (8.4-10.2); Carbon Dioxide 23 mmol/L (22-29); Chloride 107 mmol/L (96-108); Estimated Glomerular Filt Rate > 60; Potassium 3.9 mmol/L (3.3-5.1); Sodium 138 mmol/L (135-145); Total Protein 7.4 g/dL (6.5-8.0)
[2024-11-26 05:50] LABS: HBS Num1 1.14 mIU/mL (0-7.99); HBc Num1 0.09 S/CO (0.00-0.79); HBsAGNum1 0.33 S/CO (0.00-0.99); Hepatitis B Surface Antigen Negative (Negative); ~HepC Num1 0.09 S/CO (0.00-0.79); ~Hepatitis B Surface Antibody NONREACTIVE (Nonreactive); ~Hepatitis C Antibody Nonreactive (Nonreactive)
[2024-11-28 02:58] LABS: TS Negative Control Passed; TS Panel A 0; TS Panel B 1; TS Positive Control Passed; TSpotTB Negative (Negative)
== END 2024-11-25 14:24 | disposition home or self-care (01) ==
LOC: HO.HKASLDS 14:23
PROVIDERS: PCP Internal Medicine; Visit Provider Student in an Organized Health Care Education/Training Program
DX: Z51.81 Encounter for therapeutic drug level monitoring (principal); M05.79 Rheumatoid arthritis with rheumatoid factor of multiple sites without organ or systems involvement; Z79.899 Other long term (current) drug therapy; Z11.1 Encounter for screening for respiratory tuberculosis; Z11.59 Encounter for screening for other viral diseases
CPT/HCPCS: 36415; 80053; 85025; 85652; 86140; 86481; 86704; 86706; 86803; 87340; 99212

== ENCOUNTER 2024-12-21 16:56 | Emergency (ER) | payer OTHER, SELFPAY ==
--- OUTSIDE RECORDS SUMMARY | 2024-12-20 16:30 | XMS_ITS | Encounter Summary ---
Author Organization [employer] Address [address] [place] [address] Care Team Providers Care Area Coordinator Name Role Phone Roland Matamoros MD Primary Care Provider [phone] Reason for Visit * Reason Comments Follow-up Lab results Encounter Details Date Type Department Care Team (Late st Contact Info) Description 12/20/2024 4:30 PM EDT Office Visit Adult Medicine [facility] [address], [place] [phone] Nydia Baker, [place] [address] [place] [address] Anemia, unspecified type (Primary Dx) Social History Tobacco Use Types Packs/Day Years [...] on file Sexual Orientation Not on file documented as of this encounter Last Filed Vital Signs Vital Sign Reading Time Taken Comments Blood Pressure 119/64 12/20/2024 3:06 PM EDT Pulse 96 12/20/2024 3:06 PM EDT Temperature 36.9 C (98.5 F) 12/20/2024 3:06 PM EDT Respiratory Rate 15 12/20/2024 3:06 PM EDT Oxygen Saturation 99% 12/20/2024 3:06 PM EDT Inhaled Oxygen Concentration - - Weight 64 kg (141 lb 3.2 oz) 12/20/2024 3:06 PM EDT Height 154.9 cm (5' 1 ) 12/20/2024 3:06 PM EDT Body Mass Index 26.68 12/20/2024 3:06 PM EDT documented in this encounter Progress Notes * Nydia Baker NP - 12/20/2024 4:30 PM EDT PATIENT'S PCP: Roland Matamoros MD LAST VISIT IN THIS DEPARTMENT: 06/24/2024 I have obtained verbal consent from Tani Tompkins prior to the recording. I have advised Tani Tompkins that she may refuse the recording and require the recording to be turned off at any time during thisencounter. Tani Tompkins is a 44 y.o. (: 1980) female who presents today for: Chief Complaint Patient presents with Follow-up Lab results SUBJECTIVE History of Present Illness The patient presents for evaluation of anemia. 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 She was advised to seek follow-up care with her primary care physician. She reports experiencing constant fatigue and an increased desire to sleep. She has no prior history of anemia and typically has high hemoglobin levels, ranging from 13 to 14. She also reports no history of thyroid disorders. Review Of System See HPI PAST MEDICAL HISTORY: Patient Active Problem List Diagnosis Date Noted Vitamin D deficiency 05/27/2024 Heartburn 03/02/2024 Migraines 03/02/2024 Intramural leiomyoma of uterus 03/25/2022 Rheumatoid arthritis ([facility] V24, [facility] V28) 11/05/2021 Asthma 07/06/2021 Surgical History[1] SOCIAL HISTORY: Social History Tobacco Use Smoking status: Never Smokeless tobacco: Never Substance Use Topics Alcohol use: No FAMILY HISTORY: Family History[2] Family Status Relation Name Status Mother Alive Father Alive PGM (Not Specified) Aunt m 40s Alive No partnership data on file OBJECTIVES Vitals: 12/20/24 1506 BP: 119/64 Pulse: 96 Resp: 15 Temp: 36.9 ??C (98.5 ??F) TempSrc: Oral SpO2: 99% Weight: 64 kg (141 lb 3.2 oz) Height: 1.549 m (61 ) BP Readings from Last 5 Encounters: 12/20/24 119/64 06/24/24 100/66 05/27/24 110/68 01/27/24 115/54 10/02/23 104/68 Body mass index is 26.68 kg/m??. BMI is greater than 25.0 (above the normal range) - see Plan Wt Readings from Last 5 Encounters: 12/20/24 1506 64 kg (141 lb 3.2 oz) 06/24/24 1526 60.3 kg (133 lb) 05/27/24 1430 61.5 kg (135 lb 8 oz) 10/02/23 1359 64 kg (141 lb) 06/04/23 1325 64.8 kg (142 lb 12.8 oz) Allergies[3] Active Medications: Current Outpatient Medications Medication Instructions cholecalciferol (VITAMIN D3) 2,000 Units, oral, Daily tacrolimus (PROTOPIC) 0.1 % ointment 1 Application, Topical, 2 times daily, APPLY TO AFFECTED AREA Physical Exam Constitutional: Appearance: Normal appearance. Cardiovascular: Rate and Rhythm: Regular rhythm. Heart sounds: Normal heart sounds. Pulmonary: Breath sounds: Normal breath sounds. Skin: General: Skin is warm. Neurological: Mental Status: She is oriented to person, place, and time. LABORATORY: CBC: No results found for: WBC , HGB , HCT , MCV , PLT Iron Study: No results found for: IRON , TIBC , FERRITIN No results found for: LDLCALC 1. Anemia, unspecified type Assessment & Plan Anemia Hemoglobin level is 7.2 and hematocrit is 26.1, indicating anemia. She reports feeling tired all the time and wanting to sleep constantly. There is no history of anemia, and according to patient her hemoglobin levels have typically been high (13-14). A complete blood count (CBC), iron level, and TIBC level will be checked today. A basic metabolic panel (BMP) will also be conducted to assess kidney and electrolyte function. Depending on the results, treatment options include iron supplements or a transfusion if levels arecritically low. She is advised that she will need to take iron supplements with vitamin C or orangejuice to enhance absorption and to increase water intake to prevent constipation. If her hemoglobinlevel is below 7, a transfusion may be recommended. Patient understands the plan and is in agreement with the plan. Health Maintenance Due Topic Date Due Colorectal Cancer Screening: Colonoscopy Never done Hepatitis B Vaccines (1 of 3 - 19+ 3-dose series) Never done Social Influencers of Health Screening Never done Depression Screening 02/25/2024 Influenza Vaccine (1) 10/25/2024 COVID-19 Vaccine ( season) 2024 Nydia Baker NP ADULT MEDICINE [address] I have obtained verbal consent from Tani Tompkins prior to the recording. I have advised Tani Tompkins that she may refuse the recording and require the recording to be turned off at any time during thisencounter. Today's documentation was made using voice recognition software.This note may contain grammatical errors secondary to this software. [1] Past Surgical History: Procedure Laterality Date TUBAL LIGATION 2002 [2] Family History Problem Relation Name Age of Onset Asthma Mother Hypertension Father cad Other cancer Paternal Grandmother mouth / stomach Breast cancer Aunt m 40s 60 Aunt on mothers side [3] Allergies Allergen Reactions Aspirin documented in this encounter Plan of Treatment Upcoming Encounters Date Type Department Care Team (Late st Contact Info) Description 04/27/2025 4:00 PM EST Appointment Radiology Department [address] [phone] documented as of this encounter Results * Basic metabolic panel (12/20/2024 3:34 PM EDT) Sodium 136 133 - 145 mmol/L LAB CHEMISTRY METHOD 12/20/2024 6:58 PM EDT [facility] Potassium 3.8 3.5 - 5.5 mmol/L LAB CHEMISTRY METHOD 12/20/2024 6:58 PM EDT [facility] Chloride 105 96 - 110 mmol/L LAB CHEMISTRY METHOD 12/20/2024 6:58 PM EDT [facility] CO2 26 21 - 32 mmol/L LAB CHEMISTRY METHOD 12/20/2024 6:58 PM EDT [facility] Anion Gap 5 3 - 11 LAB CHEMISTRY METHOD 12/20/2024 6:58 PM EDT [facility] Glucose 83 70 - 100 mg/dL LAB CHEMISTRY METHOD 12/20/2024 6:58 PM EDT [facility] BUN 14 5 - 25 mg/dL LAB CHEMISTRY METHOD 12/20/2024 6:58 PM EDT [facility] Creatinine 0.72 0.50 - 1.10 mg/dL LAB CHEMISTRY METHOD 12/20/2024 6:58 PM EDT [facility] eGFR 105 >=60 mL/min/1. 73m2 LAB CHEMISTRY METHOD 12/20/2024 6:58 PM EDT [facility] Comment:Calculation based on the Chronic Kidney Disease Epidemiology Collaboration (CKD-EPI) equation refit without adjustment for race. BUN/Creatinine Ratio 19.4 LAB CHEMISTRY METHOD 12/20/2024 6:58 PM EDT [facility] Calcium 8.9 8.5 - 10.5 mg/dL LAB CHEMISTRY METHOD 12/20/2024 6:58 PM T [facility] Blood Venous blood specimen / Unknown Venipuncture / Unknown 12/20/2024 3:34 PM EDT 12/20/2024 3:34 PM EDT us Nydia Baker AGRICULTURAL SPECIALIST LAB BLOOD ORDERABLES Final Re sult [facility] [address] [place] [address], * (ABNORMAL) Iron and TIBC (12/20/2024 3:34 PM EDT) Iron 16(L) 40 - 150 mcg/dL LAB CHEMISTRY METHOD 12/20/2024 6:58 PM EDT [facility] TIBC 479(H) 250 - 450 mcg/dL LAB CHEMISTRY METHOD 12/20/2024 6:58 PM EDT [facility] Iron Saturation 3(L) 15 - 50 % LAB CHEMISTRY METHOD 12/20/2024 6:58 PM EDT [facility] Blood Venous blood specimen / Unknown Venipuncture / Unknown 12/20/2024 3:34 PM EDT 12/20/2024 3:34 PM EDT us Nydia Baker AGRICULTURAL SPECIALIST LAB BLOOD ORDERABLES Final Re sult [facility] [address] [place] [address], documented in this encounter Visit Diagnoses Diagnosis Anemia, unspecified type- Primary documented in this encounter Care Teams Area Coordinator Relationship Specialty Start Date End Date Roland Matamoros MD [address] [place] [phone] PCP - General Internal Medicine 06/15/21 documented as of this encounter
[2024-12-21] VITALS (7 sets, daily range): BP systolic 95–130; BP diastolic 45–79; PULSE 67–91; RESP 14–18; TEMP 36.6–36.9; O2SAT 97–100; BMI 26.3
--- NOTE | 2024-12-21 17:13 | ED.GENADULT ---
HPI - General Adult General Chief complaint: Recheck/Abnormal Lab/Rx Stated complaint: ?Blood transfusion, sent by pcp Time Seen by Provider: 12/21/24 19:00 History of Present Illness ED Provider: Daniel Nicholas MD HPI narrative: [age] female presents with fatigue outpatient labs showing anemia. No chest pain difficulty breathing she feels relatively asymptomatic. Heavy menses last. Couple weeks ago Related Data Home Medications ?Medication ?Instructions ?Recorded ?Confirmed albuterol sulfate 90 mcg/actuation 2 puff inhalation QID PRN wheezing 12/27/21 11/25/24 aerosol inhaler (ProAir HFA) budesonide 90 mcg/actuation breath 0 inh inhalation DIRECTED 12/27/21 11/25/24 activated powder inhaler (Pulmicort Flexhaler) cetirizine 10 mg tablet 10 mg PO DAILY PRN allergies 12/27/21 11/25/24 fluticasone propionate 50 1 spray intranasal BID 12/27/21 11/25/24 mcg/actuation nasal spray,suspension pantoprazole 40 mg tablet,delayed 40 mg PO DAILY 12/27/21 11/25/24 release sumatriptan succinate 50 mg tablet See Rx Instructions PO .COMPLEX 12/27/21 11/25/24 cholecalciferol (vitamin D3) 50 50 mcg PO DAILY 03/27/22 11/25/24 mcg (2,000 unit) capsule (D3-2000) Previous Rx's ?Medication ?Instructions ?Recorded acetaminophen 500 mg capsule 500 mg PO Q6H PRN fever or pain 02/23/22 #14 caps acetaminophen 500 mg tablet 500 mg PO Q6H PRN fever or pain 03/21/23 (Tylenol Extra Strength) #30 tabs benzonatate 200 mg capsule 200 mg PO TID PRN cough #20 caps 03/21/23 oseltamivir 75 mg capsule (Tamiflu) 75 mg PO BID 5 days #10 caps 03/21/23 hydroxychloroquine 200 mg tablet 200 mg PO BID #180 tabs 11/25/24 (Sovuna) levonorgestrel 0.15 mg-ethinyl See Rx Instructions PO .COMPLEX 12/21/24 estradiol 0.03 mg tablet #84 tabs tranexamic acid 650 mg tablet 1,300 mg (2 x 650 mg) PO TID 5 10/28/25 days #30 tabs Allergies Allergy/AdvReac Type Severity Reaction Status Date / Time ibuprofen (From MOTRIN) Allergy Unknown ASA ALLERGY Verified 12/21/24 17:02 methotrexate AdvReac Mild Palpitation Verified 12/21/24 17:02 s Aspirin Allergy Unknown anaphylaxis Uncoded 12/21/24 17:02 [facility] Past Medical History Medical History Iron deficiency anemia Asthma Migraines Stomach ulcer Surgical History H/O tubal ligation Family History Family History Father Arthritis Mother Osteoporosis Social History Social History Household Members: Spouse and Children Alcohol intake: never Patient Tobacco Use Status: Never used Tobacco Advance Directives: No Advance Directives Information Provided: No Current occupational status: employed 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 Mildly pale looking Head: Atraumatic Eyes: Anicteric, Normal conjunctiva. ENT: Moist mucosa, Neck: Supple. Skin: ?No observable rash or bruising on exposed or examined skin Respiratory: Breathing comfortably, No distress.Clear to auscultation bilaterally, symmetric chest expansion, No wheeze, rales, ronchi. Cardiovascular: Regular rate and rhythm. No murmurs or rub. Well perfused periphery, warm extremities. No edema. ? Abdominal: No focal tenderness. Soft, no objective distension. No palpable masses or obvious organomegaly. ?No guarding, no rebound tenderness or other peritoneal findings. : No flank tenderness. Neuro: Alert. Gross movement of all extremities intact. ? Psych: Calm. Cooperative. MSK: No grossly visible deformity. Vital signs: See flowsheet Vital Signs: Vital Signs - 24 hr 12/21/24 16:58 12/21/24 18:52 12/21/24 20:36 Temperature 98.1 F 98 F 98.4 F Pulse Rate 91 83 74 Respiratory Rate 18 16 17 Blood Pressure 130/71 118/79 104/45 L Pulse Oximetry 100 100 Oxygen Delivery Method Room Air Room Air 12/21/24 21:00 12/21/24 21:00 12/21/24 22:46 Temperature 98.3 F 98.3 F 98.4 F Pulse Rate 75 75 71 Respiratory Rate 14 14 18 Blood Pressure 95/52 L 95/52 L 103/52 L Pulse Oximetry 99 97 Oxygen Delivery Method Room Air Room Air 12/21/24 22:51 12/21/24 23:29 Temperature 98.3 F 98.3 F Pulse Rate 68 67 Respiratory Rate 14 14 Blood Pressure 98/57 L 107/63 Pulse Oximetry 99 Oxygen Delivery Method Room Air BMI result Body Mass Index 26.3 Course Course Course Narrative: RME: 44 yold female with pmh of heavy bleeding and on IUD sent from PCP for low hemoglobin & hematocrit. repeat labs ordered Medications Administered Discontinued Medications Generic Name Dose Route Start Last Admin Trade Name Shaq PRN Reason Stop Dose Admin Iron Sucrose 200 mg/ Iron 265 mls @ 176.667 mls/hr 12/21/24 19:02 12/21/24 23:09 Sucrose 100 mg/ Sodium IV 12/21/24 20:31 Infused Chloride ONCE ONE Infusion Tranexamic Acid 1,300 mg 12/21/24 23:00 12/21/24 23:07 Tranexamic Acid 650 Mg Tablet PO 12/21/24 23:01 1,300 mg ONCE ONE Administration Medical Decision Making Medical Decision Making MDM Narrative: Medical Decision Making: [age] female with a anemia probably chronic with low MCV Hemoglobin below 7. No active bleeding currently. TXA hormone can be initiated but she needs to follow up with OBGYN Transfusion, consent obtained. Preliminary Favored Differential Diagnosis: Vaginal bleeding, abnormal uterine bleeding among additional considered etiologies Testing Interpreted Independently: ?See below for details Radiology or Lab testing Results Reviewed: ?See below for details Consults: ?See below for details Independent Historians/External Chart Reviews: ?See below for details Social Determinants of Health Impacting MDM/Planning: ?See below for details Lab Data MDM Lab Attestation statement: I reviewed the patient's lab results. 12/21/24 17:28 12/21/24 17:28 Labs: Lab Results 12/21/24 12/21/24 Range/Units 17:28 19:37 WBC 5.8 (4.8-10.8) X10*3/uL RBC 3.93 L (4.20-5.50) X10*6/uL Hgb 6.9 L* (12.0-16.0) g/dl Hct 24.9 L (37.0-47.0) % MCV 63.4 L (80.0-98.0) fL MCH 17.6 L (27.0-33.0) pg MCHC 27.7 L (31.0-35.0) g/dl RDW 19.0 H (11.0-16.0) % Plt Count 278 (160-400) X10*3/uL MPV 9.7 (9.4-12.3) fL Immature Gran % (Auto) Cancelled Neut % (Auto) Cancelled Lymph % (Auto) Cancelled [place] % (Auto) Cancelled Eos % (Auto) Cancelled Baso % (Auto) Cancelled Lymph # (Auto) Cancelled [place] # (Auto) Cancelled Eos # (Auto) Cancelled Baso # (Auto) Cancelled Abs Immat Gran (auto) Cancelled Absolute Neuts (auto) Cancelled Absolute Nucleated RBC 0.000 (0.0-0.012) X10*3/uL Nucleated RBC % (auto) 0.0 (0.0-0.2) /100WBC Neutrophils % (Manual) 62 (45-73) % Band Neutrophils % 0 L (3-5) % Lymphocytes % (Manual) 29 (20-40) % Monocytes % (Manual) 3 (2-11) % Eosinophils % (Manual) 1 (0-4) % Basophils % (Manual) 5 H (0-2) % Abs Neuts (Manual) 3.6 (2.0-8.3) X10*3/uL Lymphocytes # (Manual) 1.7 (1.2-4.9) X10*3/uL Monocytes # (Manual) 0.2 (0.1-1.2) X10*3/uL Eosinophils # (Manual) 0.1 (0.0-0.4) X10*3/uL Basophils # (Manual) 0.3 H (0.0-0.2) X10*3/uL Platelet Estimate NORMAL (NORMAL) Plt Morphology Comment NORMAL RBC Morphology NOTED Tear Drop Cells 1+ (0-2) /OIF Ovalocytes 1+ (5-14) /OIF Acanthocytes (Spur) 1+ (0-2) /OIF Absolute Retic 0.054 (0.026-0.095) X10*6/uL Percent Retic 1.3 (0.5-1.8) % Immature Retic Fraction 22.4 H (3.0-15.9) % Retic Hgb Equivalent 17.3 L (30.0-35.0) pg PT 11.9 (10.9-12.4) SEC INR 1.0 (0.9-1.1) APTT 26.0 L (26.7-34.1) SEC Sodium 141 (135-145) mmol/L Potassium 3.7 (3.3-5.1) mmol/L Chloride 109 H (96-108) mmol/L Carbon Dioxide 25 (22-29) mmol/L Anion Gap 11 L (12-20) BUN 8 L (9-16) mg/dL Creatinine 0.67 (0.5-1.4) mg/dL Estim Creat Clear Calc 89.3 Estimated GFR > 60 Random Glucose 87 (60-115) mg/dL Calcium 8.8 (8.4-10.2) mg/dL Iron 13 L (30-160) mcg/dL TIBC 406 (228-428) mcg/dL % Saturation 3 L (15-50) % Unsat Iron Binding 393 ug/dL Total Bilirubin 0.5 (0.0-1.0) mg/dL AST 23 (5-31) U/L ALT 10 (0-31) U/L Alkaline Phosphatase 73 (39-117) U/L Lactate Dehydrogenase 239 H (122-220) U/L Total Protein 7.2 (6.5-8.0) g/dL Albumin 4.4 (3.5-5.0) g/dL Beta HCG, Quant < 2 mIU/mL Blood Type O Negative Antibody Screen NEGATIVE Crossmatch See Detail Discharge Plan Discharge Clinical Impression: Abnormal uterine bleeding (AUB), Fibroid Patient Disposition: Home, Self-Care Instructions: Abnormal (Dysfunctional) Uterine Bleeding (ED), Blood Transfusion (DC) Additional Instructions: Please follow-up with your primary care physician tomorrow. If you have any worsening or new symptoms, please return to the emergency room or call 911 Prescriptions: New levonorgestrel-ethinyl estrad 0.15-0.03 mg tablet See Rx Instructions .ROUTE .COMPLEX Qty: 84 0RF Rx Instructions: take 1 tablet daily following the order on blister card(s) tranexamic acid 650 mg tablet 1,300 mg PO TID 5 Days Qty: 30 0RF No Action acetaminophen 500 mg capsule 500 mg PO Q6H PRN (Reason: fever or pain) Qty: 14 0RF oseltamivir [Tamiflu] 75 mg capsule 75 mg PO BID 5 Days Qty: 10 0RF acetaminophen [Tylenol Extra Strength] 500 mg tablet 500 mg PO Q6H PRN (Reason: fever or pain) Qty: 30 0RF benzonatate 200 mg capsule 200 mg PO TID PRN (Reason: cough) Qty: 20 0RF pantoprazole 40 mg tablet,delayed release (DR/EC) 40 mg PO DAILY Pulmicort Flexhaler 90 mcg/actuation aerosol powdr breath activated 0 inh inhalation DIRECTED fluticasone propionate 50 mcg/actuation spray,suspension 1 spray intranasal BID cetirizine 10 mg tablet 10 mg PO DAILY PRN (Reason: allergies) albuterol sulfate [ProAir HFA] 90 mcg/actuation HFA aerosol inhaler 2 puff inhalation QID PRN (Reason: wheezing) sumatriptan succinate 50 mg tablet See Rx Instructions PO .COMPLEX Rx Instructions: take 1 tab at onset of headache; if no relief may repeat 1 tab after at least 2 hrs; max = 4 tabs/24 hr PO cholecalciferol (vitamin D3) [D3-2000] 50 mcg (2,000 unit) capsule 50 mcg PO DAILY hydroxychloroquine [Sovuna] 200 mg tablet 200 mg PO BID Qty: 180 1RF Stand Alone Forms: Work/School Release Interventions: ED Discharge Assessment Last Done: 12/21/24 23:29 Discharge Date/Time: 12/21/24 23:30 Print Language: Welsh
[2024-12-21 17:43] LABS: Hematocrit 24.9 % (37.0-47.0); Mean Corpuscular HGB Conc 27.7 g/dl (31.0-35.0); Mean Corpuscular Hemoglobin 17.6 pg (27.0-33.0); NRBC Abs Auto 0.000 X10*3/uL (0.0-0.012); NRBC Pct Auto 0.0 /100WBC (0.0-0.2); Platelet Count 278 X10*3/uL (160-400); Red Blood Count 3.93 X10*6/uL (4.20-5.50)
[2024-12-21 17:49] LABS: INTERNATIONAL NORM RATIO 1.0 (0.9-1.1); Prothrombin Time 11.9 SEC (10.9-12.4)
[2024-12-21 17:50] LABS: Hemoglobin 6.9 g/dl (12.0-16.0); Mean Corpuscular Volume 63.4 fL (80.0-98.0)
[2024-12-21 17:51] LABS: White Blood Count 5.8 X10*3/uL (4.8-10.8)
[2024-12-21 17:52] LABS: Partial Thromboplastin Time 26.0 SEC (26.7-34.1)
[2024-12-21 18:10] LABS: Alanine Aminotransferase 10 U/L (0-31); Albumin Level 4.4 g/dL (3.5-5.0); Alkaline Phosphatase 73 U/L (39-117); Anion Gap 11 (12-20); Aspartate Amino Transferase 23 U/L (5-31); Blood Urea Nitrogen 8 mg/dL (9-16); Calcium 8.8 mg/dL (8.4-10.2); Carbon Dioxide 25 mmol/L (22-29); Chloride 109 mmol/L (96-108); Creatinine Clr Calc Pharmacy 89.3; Estimated Glomerular Filt Rate > 60; Potassium 3.7 mmol/L (3.3-5.1); Sodium 141 mmol/L (135-145); Total Protein 7.2 g/dL (6.5-8.0)
--- NOTE | 2024-12-21 19:40 | PC.NURSE ---
Pt a&ox3, resting comfortably on stretcher. Pt denies pain, shortness of breath, or weakness. Reports having a cough. Pt has 18g in LAC. A 20g IV was also placed in RAC. Pt placed on tele. Breathing unlabored, skin is pale. VSS. She reports having heavy menstrual bleeding, last period was 3 weeks ago. Denies any bleeding currently.
[2024-12-21 19:43] LABS: Basophils Abs Manual 0.3 X10*3/uL (0.0-0.2); Basophils Percent Manual 5 % (0-2); Eosinophils Absolute Manual 0.1 X10*3/uL (0.0-0.4); Eosinophils Percent Manual 1 % (0-4); Lymphocytes Absolute Manual 1.7 X10*3/uL (1.2-4.9); Lymphocytes Percent Manual 29 % (20-40); Monocytes Absolute Manual 0.2 X10*3/uL (0.1-1.2); Monocytes Percent Manual 3 % (2-11); Neutrophils Percent Manual 62 % (45-73)
[2024-12-21 19:44] LABS: Ovalocytes 1+ (5-14) /OIF; RBC Morphology NOTED
[2024-12-21 19:45] LABS: Acanthocytes 1+ (0-2) /OIF; Tear Drop Cells 1+ (0-2) /OIF
[2024-12-21 19:46] LABS: Band Neutrophils Percent 0 % (3-5); Neutrophils Absolute Manual 3.6 X10*3/uL (2.0-8.3)
[2024-12-21 19:49] LABS: Reticulocytes Absolute 0.054 X10*6/uL (0.026-0.095)
--- OUTSIDE RECORDS SUMMARY | 2024-12-21 20:24 | XMS_ITS | Clinical Summary ---
Author Organization [address] [place] [address] [place] [phone] Phone Care Team Providers Care Human Performance Technologist Name Role Phone Roland Matamoros MD Primary Care Provider [phone] Allergies Active Allergy Reactions Criticality Noted Date [...] Intramural leiomyoma of uterus 03/25/2022 Rheumatoid arthritis ([facility] V24, [facility] V28) 11/05/2021 Asthma 07/06/2021 Encounters Date Type Department Care Team Description 12/21/2024 Results Follow-Up Adult Medicine [address] [phone] Nydia Baker NP 12/20/2024 4:30 PM EDT Office Visit Adult Medicine [address] [phone] Nydia Baker NP Anemia, unspecified type (Primary Dx) 10/26/2024 3:01 PM EDT - 10/26/2024 11:59 PM EDT Hospital Encounter Radiology Department - [address] [phone] Abnormal mammogram Discharge Disposition: Home or Self Care 09/30/2024 2:37 PM EDT - 09/30/2024 11:59 PM EDT Hospital Encounter Radiology Department - [address] [phone] Encounter for screening mammogram for breast cancer [...] Comments Heartburn Gastric ulcer Migraines Rheumatoid arthritis ([facility] V24, [facility] V28) 11/05/2021 Diverticulosis History of diverticulitis [...] Mass Index 26.68 12/20/2024 3:06 PM EDT Plan of Treatment Upcoming Encounters Date Type Department Care Team (Late st Contact Info) Description 04/27/2025 4:00 PM EST Appointment Radiology Department [address] [phone] Health Maintenance Due Date Last Done Comments [...] Procedure Name Priority Date/Time Associated Diagnosis Comments CBC WITH AUTO DIFFERENTIAL Routine 12/20/2024 3:34 PM EDT Anemia, unspecified type CBC AND DIFFERENTIAL Routine 12/20/2024 3:34 PM EDT Anemia, unspecified type IRON AND TIBC Routine 12/20/2024 3:34 PM EDT Anemia, unspecified type BASIC METABOLIC PANEL Routine 12/20/2024 3:34 PM EDT Anemia, unspecified type MAMMO DIAGNOSTIC ADDL VIEWS RIGHT Routine 10/26/2024 3:22 PM EDT Abnormal mammogram MAMMO DIGITAL SCREENING W MENDEZ BILAT Routine 09/30/2024 2:55 PM EDT Encounter for screening mammogram for breast cancer DEPRESSION SCREENING Routine 04/30/2023 LIPID PANEL Routine 04/18/2022 HPV Routine 11/07/2020 HIV SCREENING Routine 08/21/2020 HEPATITIS C SCREENING Routine 04/27/2020 from Last 3 Months or Most Recently Relevant to Health Maintenance Results * (ABNORMAL) CBC auto differential (12/20/2024 3:34 PM EDT) [facility] WBC 7.7 4.8 - 10.8 K/mcL LAB HEMETOLOGY [facility] RBC 3.90 3.80 - 4.80 M/mcL LAB HEMETOLOGY METHOD 12/20[facility]2024 6[facility] Hemoglobin 6.8(L) 11.5 - 16.0 g/dL LAB HEMETOLOGY METHOD 12/20/2024 6:29 PM [facility] Hematocrit 25.5(L) 35.0 - 47.0 % LAB HEMETOLOGY METHOD 12/20/2024 6:29 PM [facility] MCV 65.7(L) 79.0 - 98.0 FL LAB HEMETOLOGY METHOD 12/20/2024 6:29 PM [facility] MCH 17.5(L) 27.0 - 32.0 pcg LAB HEMETOLOGY METHOD 12/20/2024 6:29 PM [facility] MCHC 26.7(L) 32.0 - 37.0 g/dL LAB HEMETOLOGY METHOD 12/20/2024 6:29 PM [facility] RDW 19.1(H) 11.0 - 15.0 % LAB HEMETOLOGY METHOD 12/20/2024 6:29 PM [facility] Platelets 325 130 - 400 K/mcL LAB HEMETOLOGY METHOD 12/20/2024 6:29 PM [facility] MPV 11.4(H) 7.0 - 11.0 FL LAB HEMETOLOGY METHOD 12/20/2024 6:29 PM [facility] NRBC 0.0 <1.0 % LAB HEMETOLOGY METHOD 12/20/2024 6:[facility] NRBC Absolute 0.00 <0.10 K/mcL LAB HEMETOLOGY METHOD 12/20/2024 6:29 PM [facility] Neutrophils Relative 56.6 % LAB HEMETOLOGY METHOD 12/20/2024 6:29 PM [facility] Lymphocytes Relative 29.1 % LAB HEMETOLOGY METHOD 12/20/2024 6:29 PM [facility] Monocytes Relative 7.2 % LAB HEMETOLOGY METHOD 12/20/2024 6:29 PM [facility] Eosinophils Relative 5.0 % LAB HEMETOLOGY METHOD 12/20/2024 6:29 PM [facility] Basophils Relative 1.7 % LAB HEMETOLOGY METHOD 12/20/2024 6:29 PM [facility] Immature Granulocytes Relative 0.4 % LAB HEMETOLOGY METHOD 12/20/2024 6:29 PM [facility] Neutrophils Absolute 4.34 1.50 - 7.00 K/mcL LAB HEMETOLOGY METHOD 12/20/2024 6:29 PM [facility] Lymphocytes Absolute 2.23 1.00 - 5.00 K/mcL LAB HEMETOLOGY METHOD 12/20/2024 6:29 PM T [facility] Monocytes Absolute 0.55 0.20 - 1.00 K/mcL LAB HEMETOLOGY METHOD 12/20/2024 6:29 PM [facility] Eosinophils Absolute 0.38 0.00 - 0.50 K/mcL LAB HEMETOLOGY METHOD 12/20/2024 6:29 PM [facility] Basophils Absolute 0.13 0.00 - 0.20 K/mcL LAB HEMETOLOGY METHOD 12/20/2024 6:29 PM EDT [facility] Immature Granulocytes Absolute 0.03 0.00 - 0.03 K/mcL LAB HEMETOLOGY METHOD 12/20/2024 6:29 PM EDT [facility] Blood Venous blood specimen / Unknown Venipuncture / Unknown 12/20/2024 3:34 PM EDT 12/20/2024 3:34 PM EDT Nydia Baker [employer] LAB BLOOD ORDERABLES Final Re sult Performing Organization Address [facility]/ZIP Co de Phone Number [facility] [address] [place] [address], [place] [phone] * (ABNORMAL) Iron and TIBC (12/20/2024 3:34 PM EDT) Iron 16(L) 40 - 150 mcg/dL LAB CHEMISTRY METHOD 12/20/2024 6:58 PM EDT [facility] TIBC 479(H) 250 - 450 mcg/dL LAB CHEMISTRY METHOD 12/20/2024 6:58 PM EDT [facility] Iron Saturation 3(L) 15 - 50 % LAB CHEMISTRY METHOD 12/20/2024 6:58 PM EDT [facility] Blood Venous blood specimen / Unknown Venipuncture / Unknown 12/20/2024 3:34 PM EDT 12/20/2024 3:34 PM EDT us Nydia Baker [employer] LAB BLOOD ORDERABLES Final Re sult Performing Organization Address [facility]/ZIP Co de Phone Number [facility] [address] [place] [address], [place] [phone] * Basic metabolic panel (12/20/2024 3:34 PM EDT) Sodium 136 133 - 145 mmol/L LAB CHEMISTRY METHOD 12/20/2024 6:58 PM EDT [facility] Potassium 3.8 3.5 - 5.5 mmol/L LAB CHEMISTRY METHOD 12/20/2024 6:58 PM EDT [facility] Chloride 105 96 - 110 mmol/L LAB CHEMISTRY METHOD 12/20/2024 6:58 PM [facility] CO2 26 21 - 32 mmol/L LAB CHEMISTRY METHOD 12/20/2024 6:58 PM [facility] Anion Gap 5 3 - 11 LAB CHEMISTRY METHOD 12/20/2024 6:58 PM EDT [facility] Glucose 83 70 - 100 mg/dL LAB CHEMISTRY METHOD 12/20/2024 6:58 PM [facility] BUN 14 5 - 25 mg/dL LAB CHEMISTRY METHOD 12/20/2024 6:58 PM [facility] Creatinine 0.72 0.50 - 1.10 mg/dL LAB CHEMISTRY METHOD 12/20/2024 6:58 PM [facility] eGFR 105 >=60 mL/min/1. 73m2 LAB CHEMISTRY METHOD 12/20/2024 6:58 PM [facility] Comment:Calculation based on the Chronic Kidney Disease Epidemiology Collaboration (CKD-EPI) equation refit without adjustment for race. BUN/Creatinine Ratio 19.4 LAB CHEMISTRY METHOD 12/20/2024 6:58 PM [facility] Calcium 8.9 8.5 - 10.5 mg/dL LAB CHEMISTRY METHOD 12/20/2024 6:58 PM T [facility] Blood Venous blood specimen / Unknown Venipuncture / Unknown 12/20/2024 3:34 PM EDT 12/20/2024 3:34 PM EDT us Nydia Baker [employer] LAB BLOOD ORDERABLES Final Re sult [facility] [address] [place] [address], [place] [phone] * MG Mammo Diagnostic Addl Views Right [...] Signed Date: 10/26/2024 15:26 ET Workstation ID: [id number] Transcribed By: Self Edit Transcribed Date: 10/26/2024 [...] Signed Date: 10/26/2024 15:26 ET Workstation ID: [id number] Transcribed By: Self Edit Transcribed Date: 10/26/2024 [...] is recommended in 1 year. Mammo Location: [place] [facility], [address] [place] [address], [phone], . -------- FINAL REPORT -------- Dictated By: Elma Oquendo Dictated Date: 10/04/2024 11:18 ET Assigned Physician: Elma Oquendo Reviewed and Electronically Signed By: Elma Oquendo Signed Date: 10/04/2024 11:22 ET Workstation ID: [id number] Transcribed By: Self Edit Transcribed Date: 10/04/2024 [...] PROCEDURES Final Result * Depression Screening (04/30/2023) [facility] Depression Screening Abstracted Result [facility] [employer] Final Result * (ABNORMAL) Lipid panel (04/18/2022) [facility] LDL/HDL Ratio 4 0 - 4 Triglycerides 145 0 - 150 mg/dL Cholesterol 190 0 - 200 mg/dL HDL 55 >=40 mg/dL LDL Cholesterol 106(A) 0 - 100 mg/dL Blood Venous blood specimen / Unknown Result [facility] BLOOD ORDERABLES Esther l Result * Cervical Cancer Screening: HPV (11/07/2020) [facility] Cervical Cancer Screening: HPV Negative, Abstracted Result [facility] [employer] Final Result * HIV Screening (08/21/2020) [facility] HIV Screening Abstracted Result [facility] [employer] Final Result * Hepatitis C Screening (04/27/2020) [facility] Hepatitis C Screening Abstracted Result [facility] [employer] Final Result from Last 3 Months or Most Recently Relevant to Health Maintenance Insurance [place] [address] [place] [address] PLAN Care Teams Human Performance Technologist Relationship Specialty Start Date End Date Roland Matamoros MD [address] [place] [address] PCP - General Internal Medicine 06/15/21
--- OUTSIDE RECORDS SUMMARY | 2024-12-21 20:24 | XMS_ITS | Encounter Summary ---
Author Organization [facility] Address [address] [place] [address] Care Team Providers Care Pharmacy Technician Program Director Name Role Phone Roland Matamoros MD Primary Care Provider [phone] Reason for Referral * Consultation (Routine) - Pending Review Specialty Diagnoses / Procedures Referred By Precious wylie Referred To Contact Hematology Diagnoses Anemia, unspecified type Nydia Baker NP [address] [place] [address] Phone: tel: fax: Referral ID Status Reason Start Date Expiration Date Visits Requested Visits Authorized [id number] Pending Review Specialty Services Required 12/21/2025 1 1 Encounter Details Date Type Department Care Team (Late st Contact Info) Description 12/21/2024 Results Follow-Up Adult Medicine [facility] [address] [place] [address] Nydia Baker NP [address] [place] [address] Social History Tobacco Use Types Packs/Day Years Used Date Smoking Tobacco: Never Smokeless Tobacco: Never Alcohol Use Standard Drinks/Week Comments No 0 (1 standard drink = 0.6 oz pur e alcohol) Comments No Sex and Gender Information Value Date Recorded Sex Assigned at Not on file Legal Sex Female 9:05 AM EST Gender Identity Not on file Sexual Orientation Not on file documented as of this encounter Progress Notes * Nydia Baker NP - 12/21/2024 5:01 PM EDT Noted, thank you * Jody Del Rosario RN - 12/21/2024 4:04 PM EDT Called pt and advised her of the below message from Nydia Baker. She is in agreement with this plan and states she will go to [facility] ER. Called [facility] at . Gave report to Adore in the ER regarding pt's lab results. Lab results printed and faxed to . * Jody Del Rosario RN - 12/21/2024 4:01 PM EDT ----- Message from Lali Baker NP sent at 12/21/2024 3:19 PM EDT ----- Please inform patient H+H is critically low and she needs to go to the ED for transfusion, referralto hematology also placed. ----- Message ----- From: Lab, Background User Sent: 12/20/2024 6:29 PM EDT To: Nydia Baker NP * Ira Alonzo - 12/21/2024 3:46 PM EDT Patient is calling about results please advise. documented in this encounter Plan of Treatment Upcoming Encounters Date Type Department Care Team (Late st Contact Info) Description 04/27/2025 4:00 PM EST Appointment Radiology Department [address] [phone] Scheduled Referrals Name Type Priority Associated Diagnoses Order Schedule Ambulatory referral to Hematology Outpatient Referral Routine Anemia, unspecified type 1 Occurrences starting 12/21/2024 until 12/21/2025 documented as of this encounter Visit Diagnoses Diagnosis Anemia, unspecified type- Primary documented in this encounter Care Teams Pharmacy Technician Program Director Relationship Specialty Start Date End Date Roland Matamoros MD [address] [place] [phone] PCP - General Internal Medicine 06/15/21 documented as of this encounter
[2024-12-21 20:31] LABS: Iron 13 mcg/dL (30-160); Percent Iron Saturation 3 % (15-50); Total Iron Binding Capacity 406 mcg/dL (228-428); Unsaturated Iron Binding 393 ug/dL
[2024-12-21] MEDS: Iron Sucrose Complex 200 MG, Iron Sucrose Complex 100 MG in 0.9 % Sodium Chloride 250 ML 176.67 MG IV (21:38)
--- NOTE | 2024-12-21 21:42 | PC.NURSE ---
Delay in medication administration d/t awaiting for meds from pharmacy. Pt currently has two IVs. Iron is currently infusing as ordered via IV in RAC. Pt has RBCs infusing via IV in LAC. Plan to start tranexamic acid once iron is finished infusing.
--- NOTE | 2024-12-21 23:03 | ED_ITS ---
HPI - Recheck/Abnormal Lab/Rx General Chief Complaint: Recheck/Abnormal Lab/Rx Stated Complaint: ?Blood transfusion, sent by pcp Time Seen by Provider: 12/21/24 19:00 Related Data Home Medications ?Medication ?Instructions ?Recorded ?Confirmed albuterol sulfate 90 mcg/actuation 2 puff inhalation Q ID PRN wheezing 12/27/21 11/25/24 aerosol inhaler (ProAir HFA) budesonide 90 mcg/actuation breath 0 inh inhalation DIRECTED 12/27/21 11/25/24 activated powder inhaler (Pulmicort Flexhaler) cetirizine 10 mg tablet 10 mg PO DAILY PRN allergies 12/27/21 11/25/24 fluticasone propionate 50 1 spray intranasal BID 12/2711/25/24 mcg/actuation nasal spray,suspension pantoprazole 40 mg tablet,delayed 40 mg PO DAILY 12/2711/25/24 release sumatriptan succinate 50 mg tablet See Rx Instructions PO .COMPLEX 12/27/21 11/25/24 cholecalciferol (vitamin D3) 50 50 mcg PO DAILY 11/25/24 mcg (2,000 unit) capsule (D3-1999) Previous Rx's ?Medication ?Instructions ?Recorded acetaminophen 500 mg capsule 500 mg PO Q6H PRN fever o r pain 02/23/22 #14 caps acetaminophen 500 mg tablet 500 mg PO Q6H PRN fever or pain 03/21/23 (Tylenol Extra Strength) #30 tabs benzonatate 200 mg capsule 200 mg PO TID PRN cough #20 caps 03/21/23 oseltamivir 75 mg capsule (Tamiflu) 75 mg PO BID 5 day s #10 caps 03/21/23 hydroxychloroquine 200 mg tablet 200 mg PO BID #180 ta bs 11/25/24 (Sovuna) levonorgestrel 0.15 mg-ethinyl See Rx Instructions PO .COMPLEX 12/21/24 estradiol 0.03 mg tablet #84 tabs tranexamic acid 650 mg tablet 1,300 mg (2 x 650 mg) PO TID 5 12/21/24 days #30 tabs Allergies Allergy/AdvReac Type Severity Reaction Status Date / Time ibuprofen (From MOTRIN) Allergy Unknown ASA ALLERGY Verified 12/21/24 17:02 methotrexate AdvReac Mild Palpitation Verified 12/21/24 17:02 s Aspirin Allergy Unknown anaphylaxis Uncoded 12/21/24 17:02 [facility] Past Medical History Medical History Iron deficiency anemia Asthma Migraines Stomach ulcer Surgical History H/O tubal ligation Family History Family History Father Arthritis Mother Osteoporosis Social History Social History Household Members: Spouse and Children Alcohol intake: never Patient Tobacco Use Status: Never used Tobacco Advance Directives: No Advance Directives Information Provided: No Current occupational status: employed 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, [employer]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 Physical Exam 2 Vital Signs: Vital Signs: Last Vital Signs Temp 98.3 F 12/21/24 22:51 Pulse 68 12/21/24 22:51 Resp 14 12/21/24 22:51 BP 98/57 L 12/21/24 22:51 Pulse Ox 97 12/21/24 22:46 O2 Del Method Room Air 12/21/24 22:46 BMI result Body Mass Index 26.3 Medications Administered Discontinued Medications Generic Name Dose Route Start Last Admin Trade Name Batsheva PRN Reason Stop Dose Admin Iron Sucrose 200 mg/ Iron 265 mls @ 176.667 mls/hr 12/21/24 19:02 12/21/24 21:38 Sucrose 100 mg/ Sodium IV 12/21/24 20:31 176.67 mls/hr Chloride ONCE ONE Administration Medical Decision Making Medical Decision Making [facility] Narrative: I received sign-out from my colleague Dr. Chinchilla -a bedside ultrasound was done per Dr. Barney, which showed fibroids. -patient has heavy vaginal bleeding, patient was started on a unit of blood, packed red blood cells and IV iron, patient tolerated well the transfusion. Patient feeling much better. Patient was given p.o. TXA. Dr. Barney already sent the patient's prescriptions -patient states that she has an OBGYN who has been seeing her for several years. Patient denies any chest pain or shortness of breath, no reaction to the transfusion. Overall feeling much better. Differential Diagnosis Differential Diagnoses: The differential diagnosis associated with the presentation includes Lab Data MDM Lab Attestation statement: I reviewed the patient's lab results. 12/21/24 17:28 12/21/24 17:28 Labs: Lab Results 12/21/24 12/21/24 Range/Units 17:28 19:37 WBC 5.8 (4.8-10.8) X10*3/uL RBC 3.93 L (4.20-5.50) X10*6/uL Hgb 6.9 L* (12.0-16.0) g/dl Hct 24.9 L (37.0-47.0) % MCV 63.4 L (80.0-98.0) fL MCH 17.6 L (27.0-33.0) pg MCHC 27.7 L (31.0-35.0) g/dl RDW 19.0 H (11.0-16.0) % Plt Count 278 (160-400) X10*3/uL MPV 9.7 (9.4-12.3) fL Immature Gran % (Auto) Cancelled Neut % (Auto) Cancelled Lymph % (Auto) Cancelled [place] % (Auto) Cancelled Eos % (Auto) Cancelled Baso % (Auto) Cancelled Lymph # (Auto) Cancelled [place] # (Auto) Cancelled Eos # (Auto) Cancelled Baso # (Auto) Cancelled Abs Immat Gran (auto) Cancelled Absolute Neuts (auto) Cancelled Absolute Nucleated RBC 0.000 (0.0-0.012) X10*3/uL Nucleated RBC % (auto) 0.0 (0.0-0.2) /100WBC Neutrophils % (Manual) 62 (45-73) % Band Neutrophils % 0 L (3-5) % Lymphocytes % (Manual) 29 (20-40) % Monocytes % (Manual) 3 (2-11) % Eosinophils % (Manual) 1 (0-4) % Basophils % (Manual) 5 H (0-2) % Abs Neuts (Manual) 3.6 (2.0-8.3) X10*3/uL Lymphocytes # (Manual) 1.7 (1.2-4.9) X10*3/uL Monocytes # (Manual) 0.2 (0.1-1.2) X10*3/uL Eosinophils # (Manual) 0.1 (0.0-0.4) X10*3/uL Basophils # (Manual) 0.3 H (0.0-0.2) X10*3/uL Platelet Estimate NORMAL (NORMAL) Plt Morphology Comment NORMAL RBC Morphology NOTED Tear Drop Cells 1+ (0-2) /OIF Ovalocytes 1+ (5-14) /OIF Acanthocytes (Spur) 1+ (0-2) /OIF Absolute Retic 0.054 (0.026-0.095) X10*6/uL Percent Retic 1.3 (0.5-1.8) % Immature Retic Fraction 22.4 H (3.0-15.9) % Retic Hgb Equivalent 17.3 L (30.0-35.0) pg PT 11.9 (10.9-12.4) SEC INR 1.0 (0.9-1.1) APTT 26.0 L (26.7-34.1) SEC Sodium 141 (135-145) mmol/L Potassium 3.7 (3.3-5.1) mmol/L Chloride 109 H (96-108) mmol/L Carbon Dioxide 25 (22-29) mmol/L Anion Gap 11 L (12-20) BUN 8 L (9-16) mg/dL Creatinine 0.67 (0.5-1.4) mg/dL Estim Creat Clear Calc 89.3 Estimated GFR > 60 Random Glucose 87 (60-115) mg/dL Calcium 8.8 (8.4-10.2) mg/dL Iron 13 L (30-160) mcg/dL TIBC 406 (228-428) mcg/dL % Saturation 3 L (15-50) % Unsat Iron Binding 393 ug/dL Total Bilirubin 0.5 (0.0-1.0) mg/dL AST 23 (5-31) U/L ALT 10 (0-31) U/L Alkaline Phosphatase 73 (39-117) U/L Lactate Dehydrogenase 239 H (122-220) U/L Total Protein 7.2 (6.5-8.0) g/dL Albumin 4.4 (3.5-5.0) g/dL Beta HCG, Quant < 2 mIU/mL Blood Type O Negative Antibody Screen NEGATIVE Crossmatch See Detail Critical Care Time Critical Care Time Critical Care Time: Yes Total Critical Care Time: 60 Attestation: I have personally provided critical care time. Time includes review of lab data, radiology results, discussion with consultants, and monitoring for potential decompensation. Intervention performed as documented. Discharge Plan Discharge Clinical Impression: Abnormal uterine bleeding (AUB), Fibroid Patient Disposition: Home, Self-Care Instructions: Abnormal (Dysfunctional) Uterine Bleeding (ED), Blood Transfusion (DC) Additional Instructions: Please follow-up with your primary care physician tomorrow. If you have any worsening or new symptoms, please return to the emergency room or call 911 Prescriptions: New levonorgestrel-ethinyl estrad 0.15-0.03 mg tablet See Rx Instructions .ROUTE .COMPLEX Qty: 84 0RF Rx Instructions: take 1 tablet daily following the order on blister card(s) tranexamic acid 650 mg tablet 1,300 mg PO TID 5 Days Qty: 30 0RF No Action acetaminophen 500 mg capsule 500 mg PO Q6H PRN (Reason: fever or pain) Qty: 14 0RF oseltamivir [Tamiflu] 75 mg capsule 75 mg PO BID 5 Days Qty: 10 0RF acetaminophen [Tylenol Extra Strength] 500 mg tablet 500 mg PO Q6H PRN (Reason: fever or pain) Qty: 30 0RF benzonatate 200 mg capsule 200 mg PO TID PRN (Reason: cough) Qty: 20 0RF pantoprazole 40 mg tablet,delayed release (DR/EC) 40 mg PO DAILY Pulmicort Flexhaler 90 mcg/actuation aerosol powdr breath activated 0 inh inhalation DIRECTED fluticasone propionate 50 mcg/actuation spray,suspension 1 spray intranasal BID cetirizine 10 mg tablet 10 mg PO DAILY PRN (Reason: allergies) albuterol sulfate [ProAir HFA] 90 mcg/actuation HFA aerosol inhaler 2 puff inhalation QID PRN (Reason: wheezing) sumatriptan succinate 50 mg tablet See Rx Instructions PO .COMPLEX Rx Instructions: take 1 tab at onset of headache; if no relief may repeat 1 tab after at least 2 hrs; max = 4 tabs/24 hr PO cholecalciferol (vitamin D3) [D3-2000] 50 mcg (2,000 unit) capsule 50 mcg PO DAILY hydroxychloroquine [Sovuna] 200 mg tablet 200 mg PO BID Qty: 180 1RF Print Language: Lithuanian
== END 2024-12-21 23:30 | disposition home or self-care (01) ==
PROVIDERS: Emergency Medicine; Physician Assistant; Emergency Provider Emergency Medicine; PCP Internal Medicine
DX: N93.9 Abnormal uterine and vaginal bleeding, unspecified (principal); D25.9 Leiomyoma of uterus, unspecified; D50.9 Iron deficiency anemia, unspecified; Z79.899 Other long term (current) drug therapy
CPT/HCPCS: 36415; 36430; 80053; 83540; 83615; 84702; 85007; 85025; 85027; 85045; 85610; 85730; 86850; 86900; 86901; 86923; 99284; 99285; J1756; P9016